=== PATIENT | female | born 1940 | race Two or more races ===

== ENCOUNTER 2017-10-31 14:08 | Inpatient (IN) | payer MEDICARE, MEDICAID ==
[~2017-10-31] VITALS: Ht 160 cm; Wt 78.7 kg
[2017-10-31] MEDS ORDERED: ISOSORBIDE MONO60 M1 PO (14:35)
[2017-10-31] MEDS ORDERED: LOSARTAN-HCTZ1 EAC1 ORAL (14:35)
[2017-10-31] MEDS ORDERED: Morphine Sulfate 4mg/ml Inj IVP ONE (14:45)
[2017-10-31] MEDS ORDERED: Sodium Chloride 500ML 550 ML IV SCH (14:45)
[2017-10-31 15:00] VITALS: BP 232/90
[2017-10-31] MEDS ORDERED: Nitroglycerin Subl 0.4mg tab SL STA (15:48)
[2017-10-31 15:52] LABS: HEMATOCRIT 37.6 % (37.0-47.0); HEMOGLOBIN 11.8 G/DL (12.0-16.0); MEAN CORPUSCULAR VOLUME 88 FL (80-99); PLATELET COUNT 256 K/UL (150-450); RED BLOOD COUNT 4.28 M/UL (4.20-5.40); RED CELL DISTRIBUTION WIDTH 13.1 % (11.6-14.8); WHITE BLOOD COUNT 10.5 K/UL (4.8-10.8)
--- NOTE | 2017-10-31 15:53 | Emergency Room Report ---
History of Present Illness General Chief Complaint: Dyspnea/Respdistress Source: Patient, Family Member Present Illness HPI The patient presents with 3 weeks of intermittent low abdominal pain and dyspnea when she is recumbent. Both have been worse the last 2 days. Pain in her left abdomen has become severe 8/10. In addition to that she's been waking up with dyspnea when she is laying down at night. She denies any chest pain. She is treated for hypertension. Denies any fevers. There's been a productive cough. This has worsened recently. Pain in abdomen is 8/10, constant, aching/ burning. No NVD, dysuria, joint pain. Feels weak. No melena or hematochezia. No vomiting blood. She denies asthma. She states she has had some problems with her kidneys, but unable to state what. Allergies: Coded Allergies: PENICILLINS (Verified Allergy, Unknown, 10/31/17) Patient History Past Medical History: see triage record Past Surgical History: other - knee surgery Social History: Denies: smoking, alcohol use Social History Narrative Reviewed Nursing Documentation: PMH: Agreed, PSxH: Agreed Nursing Documentation-PMH Hx Hypertension: Yes Review of Systems All Other Systems: negative except mentioned in HPI Physical Exam Vital Signs Date Time Temp Pulse Resp B/P (MAP) Pulse Ox O2 Delivery O2 Flow Rate FiO2 10/31/17 14:28 99.1 112 21 230/93 94 Room Air Sp02 EP Interpretation: reviewed, abnormal - low as reviewed by me General Appearance: alert, GCS 15, mild distress Head: normocephalic Eyes: bilateral eye normal inspection, bilateral eye PERRL ENT: moist mucus membranes Neck: supple Respiratory: accessory muscle use, crackles, rales, rhonchi, wheezing, expiration Cardiovascular #1: no edema, tachycardia Cardiovascular #2: 2+ radial (R) Gastrointestinal: normal inspection, no mass, non-distended, no rebound, guarding, tenderness - LLQ Musculoskeletal: back normal, normal range of motion Neurologic: alert, oriented x3, grossly normal Psychiatric: anxious Skin: warm/dry, cyanosis Medical Decision Making Diagnostic Impression: Primary Impression: Congestive heart failure Qualified Codes: I50.41 - Acute combined systolic (congestive) and diastolic ( congestive) heart failure Additional Impressions: Pneumonia Qualified Codes: J18.1 - Lobar pneumonia, unspecified organism Renal failure Qualified Codes: N17.9 - Acute kidney failure, unspecified ER Course Patient presents with 2 problems: orthopnea with hypoxia and LLQ pain. DDx: CHF , PNA, PE, AMI, bronchitis, bronchospasm, HTN urgency amongst others.. LLQ pain ddx: diverticulitis, UTI, strain, ischemic bowel amongst others. Evaluation with EKG, CXR, CT abdomen and pelvis, labs. Treatment with gentle hydration and addressing HTN. Morphine to treat pain (and possibly CHF). Patient EKG without injury. Chest x-ray shows congestive heart failure and a left-sided pleural effusion. Lasix, nitroglycerin paste, and nitroglycerin SL were ordered. Also fluids were stopped. Renal insufficiency. Troponin normal. Improved but still hypertensive. Hydralazine and labetalol ordered. Fever. Antibiotics begun for PNA. CT performed. Some LLQ tenderness. No guard. Not surgical abdomen. CT results - pna, effusion, chf. No bowel disease. Venous abnormalities in pelvis. Patient improved with improved oxygenation, HR and BP. Admit telemetry Dr. Titus (Dr. Camara onion topper). Laboratory Tests Test 10/31/17 15:10 10/31/17 18:15 10/31/17 21:10 White Blood Count 10.5 K/UL (4.8-10.8) Red Blood Count 4.28 M/UL (4.20-5.40) Hemoglobin 11.8 G/DL (12.0-16.0) L Hematocrit 37.6 % (37.0-47.0) Mean Corpuscular Volume 88 FL (80-99) Mean Corpuscular Hemoglobin 27.7 PG (27.0-31.0) Mean Corpuscular Hemoglobin Concent 31.5 G/DL (32.0-36.0) L Red Cell Distribution Width 13.1 % (11.6-14.8) Platelet Count 256 K/UL (150-450) Mean Platelet Volume 6.7 FL (6.5-10.1) Neutrophils (%) (Auto) 90.6 % (45.0-75.0) H Lymphocytes (%) (Auto) 2.2 % (20.0-45.0) L Monocytes (%) (Auto) 6.4 % (1.0-10.0) Eosinophils (%) (Auto) 0.0 % (0.0-3.0) Basophils (%) (Auto) 0.7 % (0.0-2.0) Prothrombin Time 9.3 SEC (9.30-11.50) Prothrombin Time INR 0.9 (0.9-1.1) PTT 29 SEC (23-33) Sodium Level 139 MMOL/L (136-145) Potassium Level 3.5 MMOL/L (3.5-5.1) Chloride Level 105 MMOL/L (98-107) Carbon Dioxide Level 22 MMOL/L (21-32) Anion Gap 12 mmol/L (5-15) Blood Urea Nitrogen 89 mg/dL (7-18) H Creatinine 3.6 MG/DL (0.55-1.30) H Estimate Glomerular Filtration Rate mL/min (>60) Glucose Level 137 MG/DL (74-106) H Calcium Level 7.8 MG/DL (8.5-10.1) L Total Bilirubin 0.5 MG/DL (0.2-1.0) Aspartate Amino Transferase (AST) 38 U/L (15-37) H Alanine Aminotransferase (ALT) 45 U/L (12-78) Alkaline Phosphatase 73 U/L (46-116) Troponin I 0.029 ng/mL (0.000-0.056) 0.063 ng/mL (0.000-0.056) Pro-B-Type Natriuretic Peptide 9800 pg/mL (0-125) H Total Protein 7.3 G/DL (6.4-8.2) Albumin 3.4 G/DL (3.4-5.0) Globulin 3.9 g/dL Albumin/Globulin Ratio 0.9 (1.0-2.7) L Lipase 333 U/L (73-393) Urine Color Pale yellow Urine Appearance Clear Urine pH 5 (4.5-8.0) Urine Specific [place] 1.010 (1.005-1.035) Urine Protein Negative (NEGATIVE) Urine Glucose (UA) Negative (NEGATIVE) Urine Ketones Negative (NEGATIVE) Urine Occult Blood Negative (NEGATIVE) Urine Nitrite Negative (NEGATIVE) Urine Bilirubin Negative (NEGATIVE) Urine Urobilinogen Normal MG/DL (0.0-1.0) Urine Leukocyte Esterase Negative (NEGATIVE) Urine Random Sodium 68 MEQ/L (20-110) Lactic Acid Level 0.80 mmol/L (0.66-2.22) EKG Diagnostic Results Rate: tachycardiac ST Segments: no acute changes Rhythm Strip Diag. Results EP Interpretation: yes Rhythm: no PVC's, no ectopy, other - ST Chest X-Ray Diagnostic Results Chest X-Ray Diagnostic Results : Chest X-Ray Ordered: Yes # of Views/Limited/Complete: 1 View Indication: Shortness of Breath EP Interpretation: Yes Interpretation: no pneumothorax, other - chf and L effusion Impression: Other Electronically Signed by: Electronically signed by Wong Louis MD Last Vital Signs Date Time Temp Pulse Resp B/P (MAP) Pulse Ox O2 Delivery O2 Flow Rate FiO2 10/31/17 22:18 149/62 10/31/17 20:00 99.7 98 24 96 Room Air 10/31/17 19:11 2.0 Status: improved Disposition: ADMITTED INPATIENT Condition: Serious Wong Louis M.D. Oct 31, 2017 15:53
[2017-10-31] MEDS ORDERED: Albuterol ud Inhalation HHN ONE (16:00)
[2017-10-31] MEDS ORDERED: Nitroglycerin 2% oint pkt TOPIC ONE (16:00)
[2017-10-31 16:01] LABS: LYMPHOCYTES % (AUTO) 2.2 % (20.0-45.0); MONOCYTES % (AUTO) 6.4 % (1.0-10.0); NEUTROPHILS % (AUTO) 90.6 % (45.0-75.0)
[2017-10-31 16:02] LABS: BASOPHILS % (AUTO) 0.7 % (0.0-2.0)
[2017-10-31 16:05] LABS: INR 0.9 (0.9-1.1)
[2017-10-31 16:17] LABS: ANION GAP 12 mmol/L (5-15); BLOOD UREA NITROGEN 89 mg/dL (7-18); CALCIUM 7.8 MG/DL (8.5-10.1); CARBON DIOXIDE 22 MMOL/L (21-32); CHLORIDE 105 MMOL/L (98-107); CREATININE 3.6 MG/DL (0.55-1.30); POTASSIUM 3.5 MMOL/L (3.5-5.1); SODIUM 139 MMOL/L (136-145)
[2017-10-31 16:28] LABS: ALANINE AMINOTRANSFERASE 45 U/L (12-78); ALBUMIN 3.4 G/DL (3.4-5.0); ALBUMIN/GLOBULIN RATIO 0.9 (1.0-2.7); ALKALINE PHOSPHATASE 73 U/L (46-116); ASPARTATE AMINO TRANSFERASE 38 U/L (15-37); BILIRUBIN,TOTAL 0.5 MG/DL (0.2-1.0)
[2017-10-31 17:00] VITALS: BP 211/83
[2017-10-31] MEDS ORDERED: Labetalol 5mg/ml 20ml vial IV STA (17:44)
[2017-10-31] MEDS ORDERED: Albuterol/Ipratropium 3ml neb HHN PRN (17:45)
[2017-10-31] MEDS ORDERED: Morphine Sulfate 4mg/ml Inj IVP PRN (17:45)
[2017-10-31] MEDS ORDERED: Miralax 17gm pkt ORAL PRN (17:45)
[2017-10-31] MEDS ORDERED: Morphine Sulfate 2mg/ml Inj IVP PRN (17:45)
--- NOTE | 2017-10-31 17:45 | History and Physical ---
History of Present Illness General Date patient seen: Oct 31, 2017 Time patient seen: 17:45 Reason for Hospitalization: Dyspnea/Respdistress Present Illness HPI 77y/o female with pmh of HTN who presents with SOB and abd pain. Pt w/ worsening SOB for the past week. Has [place] w/ minimal activities. Also with orthopnea, PND, BLE swelling. Has a cough productive of white mucus. Had subjective fevers, no chills. Did not get flu shot this year. Denies chest pain. C/o abd pain that starts at LLQ and radiates up, described as burning sensation, intermittent, not associated w/ eating, worse w/ sitting up. Some nausea, no emesis. Tolerating PO intake. Denies d/c, dysuria, melena, BRBPR. Denies recent travel. Denies smoking. Lives at home w/ daughter and grandchildren. In ED, pt noted to be hypertensive w/ SBP 200s. She was also noted to be in fluid overload and with MOLLY. She was given nebs, lasix IV, nitro paste, cefepime. Allergies: Coded Allergies: PENICILLINS (Verified Allergy, Unknown, 10/31/17) Medication History Scheduled Isosorbide Mononitrate (Isosorbide Mononitrate Er), 60 MG PO DAILY, (Reported) Losartan/Hydrochlorothiazide (Losartan-Hctz 100-25 Mg Tab), 1 TAB ORAL DAILY, ( Reported) Patient History History Provided By: Patient, Family Member, Medical Record, EMS Healthcare decision maker N Resuscitation status Advanced Directive on File Past Medical/Surgical History Past Medical/Surgical History: (1) HTN (hypertension) Family History Family History: Patient reports no known family medical history. Social History Social History: (1) lives at home w/ family Review of Systems Constitutional: Reports: fever, weakness Eye: Reports: no symptoms ENT: Reports: no symptoms Respiratory: Reports: cough, orthopnea, shortness of breath, [place], sputum Cardiovascular: Reports: no symptoms Gastrointestinal: Reports: abdominal pain, nausea Genitourinary: Reports: no symptoms Musculoskeletal: Reports: no symptoms Skin: Reports: no symptoms Psychiatric: Reports: no symptoms Neurological: Reports: no symptoms Endocrine: Reports: no symptoms Hematologic/Lymphatic: Reports: no symptoms Physical Exam Physical Exam Narrative General: alert, cooperative, no distress, appears stated age Head: normocephalic, without obvious abnormality, atraumatic Eyes: conjunctivae/corneas clear. PERRL, EOM's intact Throat: lips, mucosa, and tongue normal. MMM Neck: supple, symmetrical, trachea midline, and +JVD Lungs: +crackles b/l Heart: regular rate and rhythm, S1, S2 normal, no murmur, click, rub or gallop Abdomen: soft, +TTP of lower abd w/o rebound/guarding, non-distended, bowel sounds normal Extremities: extremities normal, atraumatic, no cyanosis, 1-2+ pitting edema to below the knees Pulses: 2+ and symmetric Skin: skin color, texture, turgor normal; no rashes or lesions Neurologic: grossly normal, no focal deficits Last 24 Hour Vital Signs Date Time Temp Pulse Resp B/P (MAP) Pulse Ox O2 Delivery O2 Flow Rate FiO2 10/31/17 17:00 104 21 211/83 95 Room Air 10/31/17 16:20 99.1 10/31/17 16:19 222/82 10/31/17 16:18 222/82 10/31/17 16:07 105 22 100 Room Air 10/31/17 16:01 102 19 Room Air 10/31/17 15:58 104 25 98 Room Air 10/31/17 15:00 105 17 232/90 99 Room Air 10/31/17 14:38 105 17 Room Air 10/31/17 14:28 99.1 112 21 230/93 94 Room Air Laboratory Tests Test 10/31/17 15:10 White Blood Count 10.5 K/UL (4.8-10.8) Red Blood Count 4.28 M/UL (4.20-5.40) Hemoglobin 11.8 G/DL (12.0-16.0) L Hematocrit 37.6 % (37.0-47.0) Mean Corpuscular Volume 88 FL (80-99) Mean Corpuscular Hemoglobin 27.7 PG (27.0-31.0) Mean Corpuscular Hemoglobin Concent 31.5 G/DL (32.0-36.0) L Red Cell Distribution Width 13.1 % (11.6-14.8) Platelet Count 256 K/UL (150-450) Mean Platelet Volume 6.7 FL (6.5-10.1) Neutrophils (%) (Auto) 90.6 % (45.0-75.0) H Lymphocytes (%) (Auto) 2.2 % (20.0-45.0) L Monocytes (%) (Auto) 6.4 % (1.0-10.0) Eosinophils (%) (Auto) 0.0 % (0.0-3.0) Basophils (%) (Auto) 0.7 % (0.0-2.0) Prothrombin Time 9.3 SEC (9.30-11.50) Prothromb Time International Ratio 0.9 (0.9-1.1) Activated Partial Thromboplast Time 29 SEC (23-33) Sodium Level 139 MMOL/L (136-145) Potassium Level 3.5 MMOL/L (3.5-5.1) Chloride Level 105 MMOL/L (98-107) Carbon Dioxide Level 22 MMOL/L (21-32) Anion Gap 12 mmol/L (5-15) Blood Urea Nitrogen 89 mg/dL (7-18) H Creatinine 3.6 MG/DL (0.55-1.30) H Estimat Glomerular Filtration Rate mL/min (>60) Glucose Level 137 MG/DL (74-106) H Calcium Level 7.8 MG/DL (8.5-10.1) L Total Bilirubin 0.5 MG/DL (0.2-1.0) Aspartate Amino Transf (AST/SGOT) 38 U/L (15-37) H Alanine Aminotransferase (ALT/SGPT) 45 U/L (12-78) Alkaline Phosphatase 73 U/L (46-116) Troponin I 0.029 ng/mL (0.000-0.056) Pro-B-Type Natriuretic Peptide 9800 pg/mL (0-125) H Total Protein 7.3 G/DL (6.4-8.2) Albumin 3.4 G/DL (3.4-5.0) Globulin 3.9 g/dL Albumin/Globulin Ratio 0.9 (1.0-2.7) L Lipase 333 U/L (73-393) Height (Feet): 5 Height (Inches): 3.00 Weight (Pounds): 180 Medications Current Medications Medications (Trade) Dose Ordered Sig/Luis Carlos Route PRN Reason Start Time Stop Time Status Last Admin Dose Admin Acetaminophen (Tylenol) 650 mg Q4H PRN ORAL Mild Pain (Pain Scale 1-3) 10/31/17 17:45 11/30/17 17:44 UNV Acetaminophen (Tylenol) 650 mg Q4H PRN ORAL fever 10/31/17 17:45 11/30/17 17:44 UNV Albuterol/ Ipratropium (Albuterol/ Ipratropium) 3 ml Q2H PRN HHN Shortness of Breath 10/31/17 17:45 11/05/17 17:44 UNV Amlodipine Besylate (Norvasc) 10 mg QPM ORAL 11/01/17 16:30 12/01/17 16:29 UNV Dextrose (Dextrose 50%) STAT PRN IV Hypoglycemia 10/31/17 17:45 11/30/17 17:44 UNV Docusate Sodium (Colace) 100 mg EVERY 12 HOURS ORAL 10/31/17 21:00 11/30/17 20:59 UNV Heparin Sodium (Porcine) (Heparin 5000 units/ml) 5,000 units EVERY 12 HOURS SUBQ 10/31/17 21:00 11/30/17 20:59 UNV Isosorbide Mononitrate (Imdur) 60 mg QD ORAL 11/01/17 08:00 12/01/17 07:59 UNV Morphine Sulfate (Morphine Sulfate) 2 mg Q4H PRN IVP Moderate Pain (Pain Scale 4-6) 10/31/17 17:45 11/07/17 17:44 UNV Morphine Sulfate (Morphine Sulfate) 4 mg Q4H PRN IVP Severe Pain (Pain Scale 7-10) 10/31/17 17:45 11/07/17 17:44 UNV Ondansetron HCl (Zofran) 4 mg Q6H PRN IVP Nausea & Vomiting 10/31/17 17:45 11/30/17 17:44 UNV Polyethylene Glycol (Miralax) 17 gm HSPRN PRN ORAL Constipation 10/31/17 17:45 11/30/17 17:44 UNV Assessment/Plan Problem List: (1) Acute on chronic diastolic (congestive) heart failure ICD Codes: I50.33 - Acute on chronic diastolic (congestive) heart failure SNOMED: 14882152, 174072776 (2) Hypertensive urgency ICD Codes: I16.0 - Hypertensive urgency SNOMED: 011165124 (3) Hypertensive heart disease ICD Codes: I11.9 - Hypertensive heart disease without heart failure SNOMED: 35973056 (4) MOLLY on CKD (5) Cardiorenal syndrome ICD Codes: I13.10 - Hypertensive heart and chronic kidney disease without heart failure, with stage 1 through stage 4 chronic kidney disease, or unspecified chronic kidney disease SNOMED: 414042608 (6) NSTEMI (non-ST elevated myocardial infarction) ICD Codes: I21.4 - Non-ST elevation (NSTEMI) myocardial infarction SNOMED: 982976981 (7) Abdominal pain ICD Codes: R10.9 - Unspecified abdominal pain SNOMED: 03209503 Status: stable Assessment/Plan Admit to tele Trend trop/EKG Check TTE Cardiology consulted BP control: cont home imdur 60mg qAM, start amlodipine 10mg daily, hydralazine 25mg TID Diurese w/ lasix 40mg IV BID, I/O goal -1 to 2L Strict I/O's, daily weights Cont box for strict I/O's Monitor lytes and replete F/u BLE venous duplex Renal consulted Check renal U/S, urine lytes F/u CT a/p Pain control, bowel regimen Supportive care DVT Prophylaxis: SCD, HSQ Code Status: Full Hospital Classification Declaration: Based on this initial evaluation, and depending on the patient's clinical course, I anticipate that this patient will require hospitalization for 2-3 days for hypertensive urgency, CHF, MOLLY and close respiratory/hemodynamic monitoring. Disposition: Once the patient is stable to leave the hospital, I anticipate the patient will likely be discharged to the following environment: home with HH vs SNF I spen 72 minutes on this patient's case, and 38 minutes were dedicated to counseling and/or care coordination. Discussed with patient/family, nursing staff, SW/CM, cardiology regarding clinical status, treatment course, and disposition planning. Time of note may not reflect time of encounter. Jax Hines M.D. Oct 31, 2017 17:45
[2017-10-31] MEDS ORDERED: Cefepime 1gm vial ONE (18:00)
[2017-10-31] MEDS ORDERED: Cefepime HCl 1 GM in D5W 55 ML IVPB ONE (18:00)
[2017-10-31 18:30] VITALS: BP 247/103
[2017-10-31 19:03] LABS: APPEARANCE,URINE CLEAR; BILIRUBIN, URINE NEGATIVE (NEGATIVE); COLOR,URINE PALE YELLOW; GLUCOSE, URINE (UA) NEGATIVE (NEGATIVE); KETONES,URINE NEGATIVE (NEGATIVE); LEUKOCYTE ESTERASE ,URINE NEGATIVE (NEGATIVE); NITRITE,URINE NEGATIVE (NEGATIVE); PH,URINE 5 (4.5-8.0); PROTEIN,URINE NEGATIVE (NEGATIVE); UROBILINOGEN,URINE NORMAL MG/DL (0.0-1.0)
[2017-10-31 19:11] VITALS: BP 153/82
[2017-10-31 20:00] VITALS: BP 145/57
--- NOTE | 2017-10-31 20:05 | Cardiac Electrophysiology PN ---
Subjective Subjective CHF, ACC HTN, Pleural effusion. Renal failure Dictaed [id number] Objective Last 24 Hour Vital Signs Date Time Temp Pulse Resp B/P (MAP) Pulse Ox O2 Delivery O2 Flow Rate FiO2 10/31/17 19:11 100.0 102 32 153/82 93 Nasal Cannula 2.0 10/31/17 18:40 102.2 99 32 247/103 93 Room Air 10/31/17 18:30 102.2 99 32 247/103 93 Room Air 10/31/17 18:03 100 256/72 10/31/17 18:02 100 256/86 10/31/17 18:02 256/72 10/31/17 17:00 104 21 211/83 95 Room Air 10/31/17 16:20 99.1 10/31/17 16:19 222/82 10/31/17 16:18 222/82 10/31/17 16:07 105 22 100 Room Air 10/31/17 16:01 102 19 Room Air 10/31/17 15:58 104 25 98 Room Air 10/31/17 15:00 105 17 232/90 99 Room Air 10/31/17 14:38 105 17 Room Air 10/31/17 14:28 99.1 112 21 230/93 94 Room Air Laboratory Tests Test 10/31/17 15:10 10/31/17 18:15 White Blood Count 10.5 K/UL (4.8-10.8) Red Blood Count 4.28 M/UL (4.20-5.40) Hemoglobin 11.8 G/DL (12.0-16.0) L Hematocrit 37.6 % (37.0-47.0) Mean Corpuscular Volume 88 FL (80-99) Mean Corpuscular Hemoglobin 27.7 PG (27.0-31.0) Mean Corpuscular Hemoglobin Concent 31.5 G/DL (32.0-36.0) L Red Cell Distribution Width 13.1 % (11.6-14.8) Platelet Count 256 K/UL (150-450) Mean Platelet Volume 6.7 FL (6.5-10.1) Neutrophils (%) (Auto) 90.6 % (45.0-75.0) H Lymphocytes (%) (Auto) 2.2 % (20.0-45.0) L Monocytes (%) (Auto) 6.4 % (1.0-10.0) Eosinophils (%) (Auto) 0.0 % (0.0-3.0) Basophils (%) (Auto) 0.7 % (0.0-2.0) Prothrombin Time 9.3 SEC (9.30-11.50) Prothromb Time International Ratio 0.9 (0.9-1.1) Activated Partial Thromboplast Time 29 SEC (23-33) Sodium Level 139 MMOL/L (136-145) Potassium Level 3.5 MMOL/L (3.5-5.1) Chloride Level 105 MMOL/L (98-107) Carbon Dioxide Level 22 MMOL/L (21-32) Anion Gap 12 mmol/L (5-15) Blood Urea Nitrogen 89 mg/dL (7-18) H Creatinine 3.6 MG/DL (0.55-1.30) H Estimat Glomerular Filtration Rate mL/min (>60) Glucose Level 137 MG/DL (74-106) H Calcium Level 7.8 MG/DL (8.5-10.1) L Total Bilirubin 0.5 MG/DL (0.2-1.0) Aspartate Amino Transf (AST/SGOT) 38 U/L (15-37) H Alanine Aminotransferase (ALT/SGPT) 45 U/L (12-78) Alkaline Phosphatase 73 U/L (46-116) Troponin I 0.029 ng/mL (0.000-0.056) Pro-B-Type Natriuretic Peptide 9800 pg/mL (0-125) H Total Protein 7.3 G/DL (6.4-8.2) Albumin 3.4 G/DL (3.4-5.0) Globulin 3.9 g/dL Albumin/Globulin Ratio 0.9 (1.0-2.7) L Lipase 333 U/L (73-393) Urine Color Pale yellow Urine Appearance Clear Urine pH 5 (4.5-8.0) Urine Specific [place] 1.010 (1.005-1.035) Urine Protein Negative (NEGATIVE) Urine Glucose (UA) Negative (NEGATIVE) Urine Ketones Negative (NEGATIVE) Urine Occult Blood Negative (NEGATIVE) Urine Nitrite Negative (NEGATIVE) Urine Bilirubin Negative (NEGATIVE) Urine Urobilinogen Normal MG/DL (0.0-1.0) Urine Leukocyte Esterase Negative (NEGATIVE) Urine Random Sodium 68 MEQ/L (20-110) Lactic Acid Level 0.80 mmol/L (0.66-2.22) ALEJANDRA GUTIERREZ Oct 31, 2017 20:05
[2017-10-31] MEDS: Heparin 5000 units/ml inj SUBQ SCH (20:45)
[2017-10-31] MEDS: Docusate 100mg cap ORAL SCH (20:45)
[2017-10-31] MEDS: HydrALAZINE 50mg tab ORAL SCH (22:18)
[2017-10-31 23:49] VITALS: BP 147/79
--- NOTE | 2017-11-01 00:30 | Consultation ---
DATE OF CONSULTATION: 10/31/2017 CARDIOLOGY CONSULTATION CONSULTING PHYSICIAN: Nav Ospina M.D. REFERRING PHYSICIAN: Lilly Titus M.D. REASON FOR CONSULTATION: Congestive heart failure, shortness of breath, and accelerated hypertension. HISTORY OF PRESENT ILLNESS: The patient is a very pleasant 77-year-old lady, who was brought into the emergency room for increasing shortness of breath and weakness. The patient was evaluated in the emergency room and was admitted for further evaluation. The patient is also complaining of left-sided abdominal pain that has become severe. She denies any chest pain. PAST MEDICAL HISTORY: Include hypertension. ALLERGIES: She is allergic to penicillin. FAMILY HISTORY: Noncontributory. SOCIAL HISTORY: She lives at home. Does not smoke or drink alcohol. REVIEW OF SYSTEMS: Review of systems was negative other than what was mentioned in the history of present illness. PHYSICAL EXAMINATION: VITAL SIGNS: Blood pressure in the emergency room was 230/93, pulse is 112, respirations 21. HEAD AND NECK: Shows no JVD. LUNGS: Decreased breath sounds. CARDIOVASCULAR: Shows regular S1 and S2 with no gallop or murmur. ABDOMEN: Soft. EXTREMITIES: A 1+ pitting edema. LABORATORY AND DIAGNOSTIC DATA: The chest x-ray showed congestive heart failure with left-sided pleural effusion. Her EKG showed sinus tachycardia, otherwise normal electrocardiogram. Her labs show white count of 10.5, hemoglobin 11.8, hematocrit 37.6, and platelet count 256,000. Sodium 139, potassium 3.5, BUN of 89, creatinine 3.6, and glucose of 137, troponin is negative. BNP is 9800. ASSESSMENT AND PLAN: 1. Shortness of breath due to volume overload due to renal failure and congestive heart failure. The BNP is more than 9000, almost 10,000. Troponin is 0.029. We will get an echocardiogram with repeat cardiac enzymes. The patient likely would need high dose of Lasix especially given the patient's renal failure. 2. Accelerated hypertension. Avoid GILMA inhibitor and angiotensin receptor blockers. I will start the patient on hydralazine and Norvasc. I will add p.r.n. clonidine to her medical regimen as well. Thank you very much, Dr. Titus, for allowing me to participate in the care of this patient. Please do not hesitate to contact me for any questions regarding my evaluation. Nav Ospina M.D. DR: YOUNG JOB#: [id number] CC:
[2017-11-01 04:30] VITALS: BP 188/86
[2017-11-01] MEDS: Imdur 30mg tab ORAL SCH (05:53)
[2017-11-01] MEDS: HydrALAZINE 50mg tab ORAL SCH ×3 (05:53→22:21)
[2017-11-01 08:00] VITALS: BP 184/91
[2017-11-01] MEDS: Heparin 5000 units/ml inj SUBQ SCH (08:18)
[2017-11-01] MEDS: Docusate 100mg cap ORAL SCH ×3 (08:18→17:36)
[2017-11-01] MEDS: Aspirin EC 81mg tab ORAL SCH (08:18)
[2017-11-01 09:07] LABS: HEMATOCRIT 33.9 % (37.0-47.0); MEAN CORPUSCULAR VOLUME 90 FL (80-99); PLATELET COUNT 220 K/UL (150-450); RED BLOOD COUNT 3.76 M/UL (4.20-5.40); RED CELL DISTRIBUTION WIDTH 13.3 % (11.6-14.8); WHITE BLOOD COUNT 7.8 K/UL (4.8-10.8)
[2017-11-01 09:31] LABS: ALANINE AMINOTRANSFERASE 40 U/L (12-78); ALBUMIN 2.9 G/DL (3.4-5.0); ALBUMIN/GLOBULIN RATIO 0.8 (1.0-2.7); ALKALINE PHOSPHATASE 64 U/L (46-116); ANION GAP 13 mmol/L (5-15); ASPARTATE AMINO TRANSFERASE 41 U/L (15-37); BILIRUBIN,TOTAL 0.5 MG/DL (0.2-1.0); BLOOD UREA NITROGEN 87 mg/dL (7-18); CALCIUM 7.3 MG/DL (8.5-10.1); CARBON DIOXIDE 22 MMOL/L (21-32); CHLORIDE 104 MMOL/L (98-107); CHOLESTEROL 154 MG/DL (< 200); CREATININE 3.9 MG/DL (0.55-1.30); HDL CHOLESTEROL 82 MG/DL (40-60); POTASSIUM 3.4 MMOL/L (3.5-5.1); SODIUM 139 MMOL/L (136-145); TRIGLYCERIDES 73 MG/DL (30-150)
--- NOTE | 2017-11-01 09:46 | Consultation ---
Consult Note Consult Note asked to eval for renal failure- The patient presents with 3 weeks of intermittent low abdominal pain and dyspnea when she is recumbent. Both have been worse the last 2 days. Pain in her left abdomen has become severe 8/10. In addition to that she's been waking up with dyspnea when she is laying down at night. She denies any chest pain. She is treated for hypertension. Denies any fevers. There's been a productive cough. This has worsened recently. Pain in abdomen is 8/10, constant, aching/ burning. No NVD, dysuria, joint pain. Feels weak. No melena or hematochezia. No vomiting blood. She denies asthma. She states she has had some problems with her kidneys, but unable to state what. Allergies: PENICILLINS (Verified Allergy, Unknown, 10/31/17) Hx Hypertension: Yes examined- data reviewed discussed with mounter saxophones/Plan plan: Renal failure , Acute + Underlying chronic Hypertensive heart and kidney disease Hypertensive urgency CHF Plan: Adjust BP meds- Avoid Nephrotoxics Monitor I&O 2D Echo Diurese Kidney OSVALDO monitor renal parameters Urine studies VALENCIA MERCER Nov 01, 2017 09:46
[2017-11-01 10:58] LABS: CREATINE KINASE 134 U/L (26-308); GAMMA GLUTAMYL TRANSPEPTIDASE 16 U/L (5-85); PHOSPHORUS 5.3 MG/DL (2.5-4.9)
[2017-11-01 12:00] VITALS: BP 128/69
[2017-11-01] MEDS ORDERED: guaiFENesin 100mg/5ml Liq ud ORAL PRN (12:15)
[2017-11-01] MEDS: Azithromycin 250mg tab ORAL SCH (13:03)
[2017-11-01] MEDS: guaiFENesin ER 600mg tab ORAL SCH ×2 (13:12→17:36)
[2017-11-01] MEDS: Albuterol/Ipratropium 3ml neb HHN SCH (13:19)
[2017-11-01] MEDS: cefTRIAXone 1 GM in D5W 55 ML IVPB SCH (14:51)
--- NOTE | 2017-11-01 15:40 | Cardiac Electrophysiology PN ---
Assessment/Plan Assessment/Plan 1. Shortness of breath due to volume overload due to renal failure and congestive heart failure. The BNP is almost 10,000. Troponin is 0.029. Echocardiogram showed EF 55% 2. Accelerated hypertension. Better on Coreg 3.125 bid,hydralazine 50 bid, Imdur, Lasix and Norvasc and p.r.n. clonidine Subjective Subjective Feeling better with diuresis and BP is better. Objective Last 24 Hour Vital Signs Date Time Temp Pulse Resp B/P (MAP) Pulse Ox O2 Delivery O2 Flow Rate FiO2 11/01/17 14:55 128/69 11/01/17 13:29 90 22 96 Nasal Cannula 2.0 28 11/01/17 13:19 86 24 94 Nasal Cannula 2.0 28 11/01/17 12:02 101 20 Nasal Cannula 4.0 36 11/01/17 12:01 94 Nasal Cannula 4.0 36 11/01/17 12:00 97.3 85 19 128/69 85 Nasal Cannula 11/01/17 12:00 97 11/01/17 10:58 99 163/80 11/01/17 10:58 99 163/80 11/01/17 08:42 Nasal Cannula 4.0 36 11/01/17 08:00 97.3 108 18 184/91 94 Nasal Cannula 11/01/17 08:00 108 11/01/17 05:53 165/96 11/01/17 05:53 165/96 11/01/17 04:30 100.3 102 22 188/86 92 Nasal Cannula 11/01/17 04:27 185/96 11/01/17 03:44 107 11/01/17 02:31 102 24 92 Nasal Cannula 2.0 28 11/01/17 02:24 102 24 92 Nasal Cannula 2.0 28 11/01/17 02:23 102 24 Nasal Cannula 2.0 28 10/31/17 23:50 89 10/31/17 23:49 97.9 98 24 147/79 95 Nasal Cannula 2.0 10/31/17 22:18 149/62 10/31/17 20:00 99.7 98 24 145/57 96 Room Air 10/31/17 19:44 99 10/31/17 19:11 100.0 102 32 153/82 93 Nasal Cannula 2.0 10/31/17 18:40 102.2 99 32 247/103 93 Room Air 10/31/17 18:30 102.2 99 32 247/103 93 Room Air 10/31/17 18:03 100 256/72 10/31/17 18:02 100 256/86 10/31/17 18:02 256/72 10/31/17 17:00 104 21 211/83 95 Room Air 10/31/17 16:20 99.1 10/31/17 16:19 222/82 10/31/17 16:18 222/82 10/31/17 16:07 105 22 100 Room Air 10/31/17 16:01 102 19 Room Air 10/31/17 15:58 104 25 98 Room Air Intake and Output 10/31/17 11/01/17 19:00 07:00 Output Total 500 ml 825 ml Balance -500 ml -825 ml Output Urine Total 500 ml 825 ml Laboratory Tests Test 10/31/17 18:15 10/31/17 21:10 11/01/17 07:40 11/01/17 08:00 Urine Color Pale yellow Urine Appearance Clear Urine pH 5 (4.5-8.0) Urine Specific [place] 1.010 (1.005-1.035) Urine Protein Negative (NEGATIVE) Urine Glucose (UA) Negative (NEGATIVE) Urine Ketones Negative (NEGATIVE) Urine Occult Blood Negative (NEGATIVE) Urine Nitrite Negative (NEGATIVE) Urine Bilirubin Negative (NEGATIVE) Urine Urobilinogen Normal MG/DL (0.0-1.0) Urine Leukocyte Esterase Negative (NEGATIVE) Urine Random Sodium 68 MEQ/L (20-110) Lactic Acid Level 0.80 mmol/L (0.66-2.22) Troponin I 0.063 ng/mL (0.000-0.056) 0.042 ng/mL (0.000-0.056) White Blood Count 7.8 K/UL (4.8-10.8) Red Blood Count 3.76 M/UL (4.20-5.40) L Hemoglobin 11.0 G/DL (12.0-16.0) L Hematocrit 33.9 % (37.0-47.0) L Mean Corpuscular Volume 90 FL (80-99) Mean Corpuscular Hemoglobin 29.2 PG (27.0-31.0) Mean Corpuscular Hemoglobin Concent 32.3 G/DL (32.0-36.0) Red Cell Distribution Width 13.3 % (11.6-14.8) Platelet Count 220 K/UL (150-450) Mean Platelet Volume 7.5 FL (6.5-10.1) Neutrophils (%) (Auto) % (45.0-75.0) Lymphocytes (%) (Auto) % (20.0-45.0) Monocytes (%) (Auto) % (1.0-10.0) Eosinophils (%) (Auto) % (0.0-3.0) Basophils (%) (Auto) % (0.0-2.0) Differential Total Cells Counted 100 Neutrophils % (Manual) 92 % (45-75) H Lymphocytes % (Manual) 2 % (20-45) L Monocytes % (Manual) 6 % (1-10) Eosinophils % (Manual) 0 % (0-3) Basophils % (Manual) 0 % (0-2) Band Neutrophils 0 % (0-8) Platelet Estimate Adequate Platelet Morphology Normal Hypochromasia 1+ Sodium Level 139 MMOL/L (136-145) Potassium Level 3.4 MMOL/L (3.5-5.1) L Chloride Level 104 MMOL/L (98-107) Carbon Dioxide Level 22 MMOL/L (21-32) Anion Gap 13 mmol/L (5-15) Blood Urea Nitrogen 87 mg/dL (7-18) H Creatinine 3.9 MG/DL (0.55-1.30) H Estimat Glomerular Filtration Rate mL/min (>60) Glucose Level 128 MG/DL (74-106) H Hemoglobin A1c 5.8 % (4.3-6.0) Uric Acid 11.0 MG/DL (2.6-7.2) H Calcium Level 7.3 MG/DL (8.5-10.1) L Phosphorus Level 5.3 MG/DL (2.5-4.9) H Magnesium Level 2.2 MG/DL (1.8-2.4) Total Bilirubin 0.5 MG/DL (0.2-1.0) Gamma Glutamyl Transpeptidase 16 U/L (5-85) Aspartate Amino Transf (AST/SGOT) 41 U/L (15-37) H Alanine Aminotransferase (ALT/SGPT) 40 U/L (12-78) Alkaline Phosphatase 64 U/L (46-116) Total Creatine Kinase 134 U/L (26-308) Total Protein 6.7 G/DL (6.4-8.2) Albumin 2.9 G/DL (3.4-5.0) L Globulin 3.8 g/dL Albumin/Globulin Ratio 0.8 (1.0-2.7) L Triglycerides Level 73 MG/DL (30-150) Cholesterol Level 154 MG/DL (< 200) LDL Cholesterol 67 mg/dL (<100) HDL Cholesterol 82 MG/DL (40-60) H Cholesterol/HDL Ratio 1.9 (3.3-4.4) L Thyroid Stimulating Hormone (TSH) 0.505 uiU/mL (0.358-3.740) Free Thyroxine 1.31 NG/DL (0.76-1.46) Urine Creatinine 75.0 MG/DL (30.0-125.0) Objective HEAD AND NECK: Shows no JVD. LUNGS: Decreased breath sounds. CARDIOVASCULAR: Shows regular S1 and S2 with no gallop or murmur. ABDOMEN: Soft. EXTREMITIES: A 1+ pitting edema. ALEJANDRA GUTIERREZ Nov 01, 2017 15:40
[2017-11-01 16:00] VITALS: BP 159/73
[2017-11-01] MEDS ORDERED: Heparin 25,000u/D5W 500ml 500 ML IV SCH (19:30)
[2017-11-01 20:00] VITALS: BP 142/72
[2017-11-01 20:07] LABS: BASOPHILS % (AUTO) 1.1 % (0.0-2.0); HEMATOCRIT 32.2 % (37.0-47.0); HEMOGLOBIN 9.8 G/DL (12.0-16.0); LYMPHOCYTES % (AUTO) 10.4 % (20.0-45.0); MEAN CORPUSCULAR VOLUME 89 FL (80-99); MONOCYTES % (AUTO) 6.3 % (1.0-10.0); NEUTROPHILS % (AUTO) 82.2 % (45.0-75.0); PLATELET COUNT 200 K/UL (150-450); RED BLOOD COUNT 3.62 M/UL (4.20-5.40); RED CELL DISTRIBUTION WIDTH 13.4 % (11.6-14.8); WHITE BLOOD COUNT 5.9 K/UL (4.8-10.8)
--- NOTE | 2017-11-01 23:26 | General Progress Note ---
Assessment/Plan Problem List: (1) Acute on chronic diastolic (congestive) heart failure ICD Codes: I50.33 - Acute on chronic diastolic (congestive) heart failure SNOMED: 68888413, 081941742 (2) Hypertensive urgency ICD Codes: I16.0 - Hypertensive urgency SNOMED: 054849864 (3) Hypertensive heart disease ICD Codes: I11.9 - Hypertensive heart disease without heart failure SNOMED: 36535215 (4) MOLLY on CKD (5) Cardiorenal syndrome ICD Codes: I13.10 - Hypertensive heart and chronic kidney disease without heart failure, with stage 1 through stage 4 chronic kidney disease, or unspecified chronic kidney disease SNOMED: 759924085 (6) NSTEMI (non-ST elevated myocardial infarction) ICD Codes: I21.4 - Non-ST elevation (NSTEMI) myocardial infarction SNOMED: 032925978 (7) Abdominal pain ICD Codes: R10.9 - Unspecified abdominal pain SNOMED: 91291946 Status: stable Assessment/Plan Trend trop/EKG until peak F/u TTE--EF wnl, diastolic dysfcn, LVH Cardiology consulted, appreciate rec's BP control: cont home imdur 60mg qAM, start amlodipine 10mg daily, hydralazine 25mg TID,c oreg 3.125mg BID Diurese w/ lasix 40mg IV BID, I/O goal -1 to 2L Repeat CXR in AM Empiric ceftriaxone + azithro for possible CAP Check for influenza Strict I/O's, daily weights Cont box for strict I/O's Monitor lytes and replete Monitor SC closely F/u BLE venous duplex Renal consulted Check renal U/S, urine lytes F/u CT a/p Pain control, bowel regimen Supportive care DVT Prophylaxis: SCD, HSQ Code Status: Full Hospital Classification Declaration: Based on this initial evaluation, and depending on the patient's clinical course, I anticipate that this patient will require hospitalization for 2-3 days for hypertensive urgency, CHF, MOLLY and close respiratory/hemodynamic monitoring. Disposition: Once the patient is stable to leave the hospital, I anticipate the patient will likely be discharged to the following environment: home with HH vs SNF Discussed with patient/family, nursing staff, SW/CM, cardiology regarding clinical status, treatment course, and disposition planning. D/w cardiology re BP control Time of note may not reflect time of encounter. Subjective Date patient seen: Nov 01, 2017 Time patient seen: 12:11 ROS Limited/Unobtainable: No Constitutional: Reports: weakness HEENT: Reports: no symptoms Cardiovascular: Reports: no symptoms Respiratory: Reports: cough, orthopnea, shortness of breath, SOB with excertion , sputum Gastrointestinal/Abdominal: Reports: abdominal pain Genitourinary: Reports: no symptoms Neurologic/Psychiatric: Reports: no symptoms Endocrine: Reports: no symptoms Hematologic/Lymphatic: Reports: no symptoms Allergies: Coded Allergies: PENICILLINS (Verified Allergy, Unknown, 10/31/17) Subjective No acute o/n events Diuresing well BP improved Pt cont to c/o SOB, abd pain, some cough. Denies f/c, n/v, d/c, chest pain D/w family at bedside Objective Last 24 Hour Vital Signs Date Time Temp Pulse Resp B/P (MAP) Pulse Ox O2 Delivery O2 Flow Rate FiO2 11/01/17 22:21 103/71 11/01/17 21:54 85 112/72 11/01/17 20:00 97.3 85 25 142/72 95 Nasal Cannula 2.0 11/01/17 18:29 Nasal Cannula 2.0 28 11/01/17 18:29 94 Nasal Cannula 2.0 28 11/01/17 16:52 98.1 11/01/17 16:45 98.1 11/01/17 16:00 84 11/01/17 16:00 98.1 85 19 159/73 85 Nasal Cannula 2.0 11/01/17 15:55 100.8 Nasal Cannula 11/01/17 14:55 128/69 11/01/17 13:29 90 22 96 Nasal Cannula 2.0 28 11/01/17 13:19 86 24 94 Nasal Cannula 2.0 28 11/01/17 12:02 101 20 Nasal Cannula 4.0 36 11/01/17 12:01 94 Nasal Cannula 4.0 36 11/01/17 12:00 97.3 85 19 128/69 85 Nasal Cannula 11/01/17 12:00 97 11/01/17 10:58 99 163/80 11/01/17 10:58 99 163/80 11/01/17 08:42 Nasal Cannula 4.0 36 11/01/17 08:00 97.3 108 18 184/91 94 Nasal Cannula 11/01/17 08:00 108 11/01/17 05:53 165/96 11/01/17 05:53 165/96 11/01/17 04:30 100.3 102 22 188/86 92 Nasal Cannula 11/01/17 04:27 185/96 11/01/17 03:44 107 11/01/17 02:31 102 24 92 Nasal Cannula 2.0 28 11/01/17 02:24 102 24 92 Nasal Cannula 2.0 28 11/01/17 02:23 102 24 Nasal Cannula 2.0 28 10/31/17 23:50 89 10/31/17 23:49 97.9 98 24 147/79 95 Nasal Cannula 2.0 Intake and Output 10/31/17 11/01/17 19:00 07:00 Output Total 500 ml 825 ml Balance -500 ml -825 ml Output Urine Total 500 ml 825 ml Laboratory Tests 11/01/17 07:40: White Blood Count 7.8, Red Blood Count 3.76L, Hemoglobin 11.0L, Hematocrit 33.9L , Mean Corpuscular Volume 90, Mean Corpuscular Hemoglobin 29.2, Mean Corpuscular Hemoglobin Concent 32.3, Red Cell Distribution Width 13.3, Platelet Count 220, Mean Platelet Volume 7.5, Neutrophils (%) (Auto) , Lymphocytes (%) ( Auto) , Monocytes (%) (Auto) , Eosinophils (%) (Auto) , Basophils (%) (Auto) , Differential Total Cells Counted 100, Neutrophils % (Manual) 92H, Lymphocytes % (Manual) 2L, Monocytes % (Manual) 6, Eosinophils % (Manual) 0, Basophils % ( Manual) 0, Band Neutrophils 0, Platelet Estimate Adequate, Platelet Morphology Normal, Hypochromasia 1+, Sodium Level 139, Potassium Level 3.4L, Chloride Level 104, Carbon Dioxide Level 22, Anion Gap 13, Blood Urea Nitrogen 87H, Creatinine 3.9H, Estimat Glomerular Filtration Rate , Glucose Level 128H, Hemoglobin A1c 5.8, Uric Acid 11.0H, Calcium Level 7.3L, Phosphorus Level 5.3H, Magnesium Level 2.2, Total Bilirubin 0.5, Gamma Glutamyl Transpeptidase 16, Aspartate Amino Transf (AST/SGOT) 41H, Alanine Aminotransferase (ALT/SGPT) 40, Alkaline Phosphatase 64, Total Creatine Kinase 134, Troponin I 0.042, Total Protein 6.7, Albumin 2.9L, Globulin 3.8, Albumin/Globulin Ratio 0.8L, Triglycerides Level 73, Cholesterol Level 154, LDL Cholesterol 67, HDL Cholesterol 82H, Cholesterol/HDL Ratio 1.9L, Thyroid Stimulating Hormone (TSH) 0.505, Free Thyroxine 1.31 11/01/17 08:00: Urine Creatinine 75.0 11/01/17 19:55: White Blood Count 5.9, Red Blood Count 3.62L, Hemoglobin 9.8L, Hematocrit 32.2L , Mean Corpuscular Volume 89, Mean Corpuscular Hemoglobin 27.1, Mean Corpuscular Hemoglobin Concent 30.5L, Red Cell Distribution Width 13.4, Platelet Count 200, Mean Platelet Volume 7.0, Neutrophils (%) (Auto) 82.2H, Lymphocytes (%) (Auto) 10.4L, Monocytes (%) (Auto) 6.3, Eosinophils (%) (Auto) 0.0, Basophils (%) (Auto) 1.1, Activated Partial Thromboplast Time 32 Height (Feet): 5 Height (Inches): 3.00 Weight (Pounds): 189 Objective General: alert, cooperative, no distress, appears stated age Head: normocephalic, without obvious abnormality, atraumatic Eyes: conjunctivae/corneas clear. PERRL, EOM's intact Throat: lips, mucosa, and tongue normal. MMM Neck: supple, symmetrical, trachea midline, and +JVD Lungs: +crackles b/l Heart: regular rate and rhythm, S1, S2 normal, no murmur, click, rub or gallop Abdomen: soft, +mild TTP of b/l lower quadrants, non-distended, bowel sounds normal Extremities: extremities normal, atraumatic, no cyanosis or edema Pulses: 2+ and symmetric Skin: skin color, texture, turgor normal; no rashes or lesions Neurologic: grossly normal, no focal deficits Jax Hines M.D. Nov 01, 2017 23:26
[2017-11-02] VITALS: BP 154/84
[2017-11-02] MEDS: Albuterol/Ipratropium 3ml neb HHN SCH ×5 (02:02→19:37)
[2017-11-02 02:49] LABS: EOSINOPHILS % (AUTO) 0.1 % (0.0-3.0); HEMATOCRIT 32.8 % (37.0-47.0); HEMOGLOBIN 10.6 G/DL (12.0-16.0); LYMPHOCYTES % (AUTO) 8.6 % (20.0-45.0); MEAN CORPUSCULAR VOLUME 89 FL (80-99); MONOCYTES % (AUTO) 5.5 % (1.0-10.0); NEUTROPHILS % (AUTO) 84.7 % (45.0-75.0); PLATELET COUNT 200 K/UL (150-450); RED BLOOD COUNT 3.69 M/UL (4.20-5.40); RED CELL DISTRIBUTION WIDTH 13.6 % (11.6-14.8)
[2017-11-02 02:56] LABS: ANION GAP 9 mmol/L (5-15); BLOOD UREA NITROGEN 83 mg/dL (7-18); CALCIUM 7.3 MG/DL (8.5-10.1); CARBON DIOXIDE 27 MMOL/L (21-32); CHLORIDE 103 MMOL/L (98-107); CREATININE 3.4 MG/DL (0.55-1.30); PHOSPHORUS 5.5 MG/DL (2.5-4.9); POTASSIUM 3.4 MMOL/L (3.5-5.1); SODIUM 139 MMOL/L (136-145)
[2017-11-02] MEDS ORDERED: Heparin 25,000u/D5W 500ml 500 ML IV SCH ×2 (03:30→11:30)
[2017-11-02] MEDS ORDERED: Heparin 5000 units/ml inj IV ONE (03:45)
[2017-11-02 04:00] VITALS: BP 189/77
[2017-11-02] MEDS: Imdur 30mg tab ORAL SCH (05:46)
[2017-11-02] MEDS ORDERED: HydrALAZINE 50mg tab ORAL SCH (06:00)
[2017-11-02 08:00] VITALS: BP 154/79
[2017-11-02] MEDS: Oxymetazoline 0.05% Na Spray 30ml NASAL SCH ×2 (09:00→17:39)
[2017-11-02] MEDS: Docusate 100mg cap ORAL SCH ×3 (09:01→17:39)
[2017-11-02] MEDS: Azithromycin 250mg tab ORAL SCH (09:02)
[2017-11-02] MEDS: Aspirin EC 81mg tab ORAL SCH (09:02)
[2017-11-02] MEDS: guaiFENesin ER 600mg tab ORAL SCH ×2 (09:03→17:40)
--- NOTE | 2017-11-02 10:13 | Nephrology Progress Note ---
Assessment/Plan Problem List: (1) Renal failure (2) Hypertensive heart disease (3) Hypertensive urgency (4) MOLLY on CKD Assessment plan: status: Renal failure , Acute + Underlying chronic Cr 3.4 Hypertensive heart and kidney disease Hypertensive urgency CHF Plan Plan: Adjust BP meds- K supplement Avoid Nephrotoxics Monitor I&O 2D Echo Diurese Kidney OSVALDO monitor renal parameters Urine studies Subjective ROS Limited/Unobtainable: No Constitutional: Reports: malaise, weakness Objective Objective Last 24 Hour Vital Signs Date Time Temp Pulse Resp B/P (MAP) Pulse Ox O2 Delivery O2 Flow Rate FiO2 11/02/17 09:02 82 149/83 11/02/17 09:02 82 149/83 11/02/17 07:19 Room Air 11/02/17 07:19 85 20 Room Air 21 11/02/17 07:10 85 20 93 Room Air 21 11/02/17 07:10 93 Room Air 21 11/02/17 05:46 149/83 11/02/17 05:46 149/83 11/02/17 04:00 97.5 82 24 189/77 98 Nasal Cannula 2.0 11/02/17 02:14 77 22 99 Nasal Cannula 3.0 32 11/02/17 02:02 92 Nasal Cannula 4.0 36 11/02/17 02:02 84 24 92 Nasal Cannula 2.0 28 11/02/17 02:02 Nasal Cannula 4.0 36 11/02/17 00:00 97.7 82 24 154/84 96 Nasal Cannula 2.0 11/02/17 00:00 76 11/01/17 23:41 Nasal Cannula 4.0 36 11/01/17 23:41 95 Nasal Cannula 4.0 36 11/01/17 22:21 103/71 11/01/17 21:54 85 112/72 11/01/17 20:00 97.3 85 25 142/72 95 Nasal Cannula 2.0 11/01/17 20:00 82 11/01/17 19:00 105 20 Nasal Cannula 4.0 36 11/01/17 18:29 Nasal Cannula 2.0 28 11/01/17 18:29 94 Nasal Cannula 2.0 28 11/01/17 16:52 98.1 11/01/17 16:45 98.1 11/01/17 16:00 84 11/01/17 16:00 98.1 85 19 159/73 85 Nasal Cannula 2.0 11/01/17 15:55 100.8 Nasal Cannula 11/01/17 14:55 128/69 11/01/17 13:29 90 22 96 Nasal Cannula 2.0 28 11/01/17 13:19 86 24 94 Nasal Cannula 2.0 28 11/01/17 12:02 101 20 Nasal Cannula 4.0 36 11/01/17 12:01 94 Nasal Cannula 4.0 36 11/01/17 12:00 97.3 85 19 128/69 85 Nasal Cannula 11/01/17 12:00 97 11/01/17 10:58 99 163/80 11/01/17 10:58 99 163/80 Intake and Output 11/01/17 11/02/17 19:00 07:00 Intake Total 582 ml 322.984 ml Output Total 2000 ml 2300 ml Balance -1418 ml -1977.016 ml Intake Oral 472 ml IV Total 110 ml 322.984 ml Output Urine Total 2000 ml 2300 ml # Bowel Movements 1 Laboratory Tests 11/01/17 19:55: White Blood Count 5.9, Red Blood Count 3.62L, Hemoglobin 9.8L, Hematocrit 32.2L , Mean Corpuscular Volume 89, Mean Corpuscular Hemoglobin 27.1, Mean Corpuscular Hemoglobin Concent 30.5L, Red Cell Distribution Width 13.4, Platelet Count 200, Mean Platelet Volume 7.0, Neutrophils (%) (Auto) 82.2H, Lymphocytes (%) (Auto) 10.4L, Monocytes (%) (Auto) 6.3, Eosinophils (%) (Auto) 0.0, Basophils (%) (Auto) 1.1, Activated Partial Thromboplast Time 32 11/02/17 02:30: White Blood Count 6.0, Red Blood Count 3.69L, Hemoglobin 10.6L, Hematocrit 32.8L , Mean Corpuscular Volume 89, Mean Corpuscular Hemoglobin 28.6, Mean Corpuscular Hemoglobin Concent 32.2, Red Cell Distribution Width 13.6, Platelet Count 200, Mean Platelet Volume 6.7, Neutrophils (%) (Auto) 84.7H, Lymphocytes ( %) (Auto) 8.6L, Monocytes (%) (Auto) 5.5, Eosinophils (%) (Auto) 0.1, Basophils (%) (Auto) 1.0, Activated Partial Thromboplast Time 41H, Sodium Level 139, Potassium Level 3.4L, Chloride Level 103, Carbon Dioxide Level 27, Anion Gap 9, Blood Urea Nitrogen 83H, Creatinine 3.4H, Estimat Glomerular Filtration Rate , Glucose Level 125H, Calcium Level 7.3L, Phosphorus Level 5.5H, Magnesium Level 2.2 11/02/17 09:45: Activated Partial Thromboplast Time [Pending] Height (Feet): 5 Height (Inches): 3.00 Weight (Pounds): 186 General Appearance: no apparent distress Cardiovascular: normal rate Respiratory/Chest: decreased breath sounds, rhonchi - bilaterally Abdomen: soft VALENCIA MERCER Nov 02, 2017 10:13
[2017-11-02 12:00] VITALS: BP 142/71
--- NOTE | 2017-11-02 13:12 | Cardiac Electrophysiology PN ---
Assessment/Plan Assessment/Plan 1. Shortness of breath due to volume overload due to renal failure and congestive heart failure. The BNP is almost 10,000. Troponin is 0.029. Echocardiogram showed EF 55% 2. Accelerated hypertension. Continue Coreg 3.125 bid, hydralazine 50 bid, Imdur, Lasix 40 iv bid and Norvasc and p.r.n. clonidine 3. Renal failure 4. Bilateral LE DVT on heparin. Had VQ scan today. ROSMERY RN Subjective Subjective Feeling better with diuresis. No arrhythmias on tele Objective Last 24 Hour Vital Signs Date Time Temp Pulse Resp B/P (MAP) Pulse Ox O2 Delivery O2 Flow Rate FiO2 11/02/17 12:00 98.3 83 18 142/71 100 Nasal Cannula 2.0 11/02/17 09:02 82 149/83 11/02/17 09:02 82 149/83 11/02/17 08:00 97.7 88 18 154/79 99 Nasal Cannula 2.0 11/02/17 08:00 93 11/02/17 07:19 Room Air 11/02/17 07:19 85 20 Room Air 21 11/02/17 07:10 85 20 93 Room Air 21 11/02/17 07:10 93 Room Air 21 11/02/17 05:46 149/83 11/02/17 05:46 149/83 11/02/17 04:00 97.5 82 24 189/77 98 Nasal Cannula 2.0 11/02/17 02:14 77 22 99 Nasal Cannula 3.0 32 11/02/17 02:02 92 Nasal Cannula 4.0 36 11/02/17 02:02 84 24 92 Nasal Cannula 2.0 28 11/02/17 02:02 Nasal Cannula 4.0 36 11/02/17 00:00 97.7 82 24 154/84 96 Nasal Cannula 2.0 11/02/17 00:00 76 11/01/17 23:41 Nasal Cannula 4.0 36 11/01/17 23:41 95 Nasal Cannula 4.0 36 11/01/17 22:21 103/71 11/01/17 21:54 85 112/72 11/01/17 20:00 97.3 85 25 142/72 95 Nasal Cannula 2.0 11/01/17 20:00 82 11/01/17 19:00 105 20 Nasal Cannula 4.0 36 11/01/17 18:29 Nasal Cannula 2.0 28 11/01/17 18:29 94 Nasal Cannula 2.0 28 11/01/17 16:52 98.1 11/01/17 16:45 98.1 11/01/17 16:00 84 11/01/17 16:00 98.1 85 19 159/73 85 Nasal Cannula 2.0 11/01/17 15:55 100.8 Nasal Cannula 11/01/17 14:55 128/69 11/01/17 13:29 90 22 96 Nasal Cannula 2.0 28 11/01/17 13:19 86 24 94 Nasal Cannula 2.0 28 Intake and Output 11/01/17 11/02/17 19:00 07:00 Intake Total 582 ml 322.984 ml Output Total 2000 ml 2300 ml Balance -1418 ml -1977.016 ml Intake Oral 472 ml IV Total 110 ml 322.984 ml Output Urine Total 2000 ml 2300 ml # Bowel Movements 1 Laboratory Tests Test 11/01/17 19:55 11/02/17 02:30 11/02/17 09:45 White Blood Count 5.9 K/UL (4.8-10.8) 6.0 K/UL (4.8-10.8) Red Blood Count 3.62 M/UL (4.20-5.40) L 3.69 M/UL (4.20-5.40) L Hemoglobin 9.8 G/DL (12.0-16.0) L 10.6 G/DL (12.0-16.0) L Hematocrit 32.2 % (37.0-47.0) L 32.8 % (37.0-47.0) L Mean Corpuscular Volume 89 FL (80-99) 89 FL (80-99) Mean Corpuscular Hemoglobin 27.1 PG (27.0-31.0) 28.6 PG (27.0-31.0) Mean Corpuscular Hemoglobin Concent 30.5 G/DL (32.0-36.0) L 32.2 G/DL (32.0-36.0) Red Cell Distribution Width 13.4 % (11.6-14.8) 13.6 % (11.6-14.8) Platelet Count 200 K/UL (150-450) 200 K/UL (150-450) Mean Platelet Volume 7.0 FL (6.5-10.1) 6.7 FL (6.5-10.1) Neutrophils (%) (Auto) 82.2 % (45.0-75.0) H 84.7 % (45.0-75.0) H Lymphocytes (%) (Auto) 10.4 % (20.0-45.0) L 8.6 % (20.0-45.0) L Monocytes (%) (Auto) 6.3 % (1.0-10.0) 5.5 % (1.0-10.0) Eosinophils (%) (Auto) 0.0 % (0.0-3.0) 0.1 % (0.0-3.0) Basophils (%) (Auto) 1.1 % (0.0-2.0) 1.0 % (0.0-2.0) Activated Partial Thromboplast Time 32 SEC (23-33) 41 SEC (23-33) H > 150 SEC (23-33) *H Sodium Level 139 MMOL/L (136-145) Potassium Level 3.4 MMOL/L (3.5-5.1) L Chloride Level 103 MMOL/L (98-107) Carbon Dioxide Level 27 MMOL/L (21-32) Anion Gap 9 mmol/L (5-15) Blood Urea Nitrogen 83 mg/dL (7-18) H Creatinine 3.4 MG/DL (0.55-1.30) H Estimat Glomerular Filtration Rate mL/min (>60) Glucose Level 125 MG/DL (74-106) H Calcium Level 7.3 MG/DL (8.5-10.1) L Phosphorus Level 5.5 MG/DL (2.5-4.9) H Magnesium Level 2.2 MG/DL (1.8-2.4) Microbiology Date/Time Source Procedure Growth Status 10/31/17 18:15 Blood Blood Culture - Preliminary NO GROWTH AFTER 24 HOURS Resulted 10/31/17 18:05 Blood Blood Culture - Preliminary NO GROWTH AFTER 24 HOURS Resulted 11/01/17 15:00 Nasal Nares Influenza Types A,B Antigen (MARY) - Final Complete Objective HEAD AND NECK: Shows no JVD. LUNGS: Decreased breath sounds. CARDIOVASCULAR: Regular S1 and S2 with no gallop or murmur. ABDOMEN: Soft. EXTREMITIES: A 1+ pitting edema. ALEJANDRA GUTIERREZ Nov 02, 2017 13:12
[2017-11-02] MEDS: HydrALAZINE 50mg tab ORAL SCH ×2 (13:13→20:25)
[2017-11-02] MEDS: cefTRIAXone 1 GM in D5W 55 ML IVPB SCH (13:29)
--- NOTE | 2017-11-02 14:19 | General Progress Note ---
Assessment/Plan Problem List: (1) Acute on chronic diastolic (congestive) heart failure ICD Codes: I50.33 - Acute on chronic diastolic (congestive) heart failure SNOMED: 39401376, 927228533 (2) Hypertensive urgency ICD Codes: I16.0 - Hypertensive urgency SNOMED: 772226866 (3) MOLLY on CKD (4) Sepsis ICD Codes: A41.9 - Sepsis, unspecified organism SNOMED: 86442169 (5) CAP (community acquired pneumonia) Assessment & Plan: Left lower lobe consolidation on CT ICD Codes: J18.9 - Pneumonia, unspecified organism SNOMED: 206975223 (6) Hypertensive heart disease ICD Codes: I11.9 - Hypertensive heart disease without heart failure SNOMED: 70785844 (7) Cardiorenal syndrome ICD Codes: I13.10 - Hypertensive heart and chronic kidney disease without heart failure, with stage 1 through stage 4 chronic kidney disease, or unspecified chronic kidney disease SNOMED: 463424677 (8) NSTEMI (non-ST elevated myocardial infarction) ICD Codes: I21.4 - Non-ST elevation (NSTEMI) myocardial infarction SNOMED: 848485230 (9) Abdominal pain Assessment & Plan: possibly 2/2 underlying left lower lobe pneumonia ICD Codes: R10.9 - Unspecified abdominal pain SNOMED: 11270290 (10) Acute bilateral deep vein thrombosis (DVT) of femoral veins ICD Codes: I82.413 - Acute embolism and thrombosis of femoral vein, bilateral SNOMED: 754940084028393 Status: stable Assessment/Plan Trend trop/EKG--peaked at 0.063 F/u TTE--EF wnl, diastolic dysfcn, LVH Cardiology consulted, appreciate rec's BP control: cont imdur 60mg qAM, amlodipine 10mg daily, hydralazine 50mg TID,c oreg 6.25mg BID Diurese w/ lasix 40mg IV BID, I/O goal -1 to 2L Strict I/O's, daily weights Cont box for strict I/Os Monitor CXR Trend lytes and replete Trend SCr Cont heparin gtt for acute b/l DVT F/u VQ scan Heme/onc consult Pulmonology consult Empiric ceftriaxone + azithro for possible CAP Empiric tamiflu Check for influenza A & B IgM Monitor lytes and replete Monitor SC closely F/u BLE venous duplex Renal consulted Check renal U/S--small L kidney F/u CT a/p--shows LLL consolidation Pain control, bowel regimen Supportive care DVT Prophylaxis: SCD, HSQ Code Status: Full Hospital Classification Declaration: Based on this initial evaluation, and depending on the patient's clinical course, I anticipate that this patient will require hospitalization for 2-3 days for hypertensive urgency, CHF, MOLLY, PNA and close respiratory/hemodynamic monitoring. Disposition: Once the patient is stable to leave the hospital, I anticipate the patient will likely be discharged to the following environment: home with HH vs SNF Discussed with patient/family, nursing staff, SW/CM, cardiology regarding clinical status, treatment course, and disposition planning. D/w cardiology re BP control. D/w renal re MOLLY mgmt. D/w pulm and heme/onc re anticoagulation Time of note may not reflect time of encounter. Subjective Date patient seen: Nov 02, 2017 Time patient seen: 14:18 ROS Limited/Unobtainable: No Constitutional: Reports: no symptoms HEENT: Reports: no symptoms Cardiovascular: Reports: edema Respiratory: Reports: cough, orthopnea, shortness of breath, SOB with excertion Gastrointestinal/Abdominal: Reports: no symptoms Genitourinary: Reports: no symptoms Neurologic/Psychiatric: Reports: no symptoms Endocrine: Reports: no symptoms Hematologic/Lymphatic: Reports: no symptoms Allergies: Coded Allergies: PENICILLINS (Verified Allergy, Unknown, 10/31/17) All Systems: reviewed and negative except above Subjective No acute o/n events Diuresing well BP improved Found to have acute DVT and started on heparin gtt Noted to have some epistaxis and bleeding from IV site. PTT supratherapeutic Pt cont to c/o SOB, abd pain, some cough though slowly improving. Denies f/c, n/ v, d/c, chest pain D/w family at bedside Objective Last 24 Hour Vital Signs Date Time Temp Pulse Resp B/P (MAP) Pulse Ox O2 Delivery O2 Flow Rate FiO2 11/02/17 13:57 87 20 Room Air 21 11/02/17 13:50 87 20 Room Air 21 11/02/17 13:13 142/71 11/02/17 12:00 98.3 83 18 142/71 100 Nasal Cannula 2.0 11/02/17 12:00 93 11/02/17 09:02 82 149/83 11/02/17 09:02 82 149/83 11/02/17 08:00 97.7 88 18 154/79 99 Nasal Cannula 2.0 11/02/17 08:00 93 11/02/17 07:19 Room Air 11/02/17 07:19 85 20 Room Air 21 11/02/17 07:10 85 20 93 Room Air 21 11/02/17 07:10 93 Room Air 21 11/02/17 05:46 149/83 11/02/17 05:46 149/83 11/02/17 04:00 97.5 82 24 189/77 98 Nasal Cannula 2.0 11/02/17 02:14 77 22 99 Nasal Cannula 3.0 32 11/02/17 02:02 92 Nasal Cannula 4.0 36 11/02/17 02:02 84 24 92 Nasal Cannula 2.0 28 11/02/17 02:02 Nasal Cannula 4.0 36 11/02/17 00:00 97.7 82 24 154/84 96 Nasal Cannula 2.0 11/02/17 00:00 76 11/01/17 23:41 Nasal Cannula 4.0 36 11/01/17 23:41 95 Nasal Cannula 4.0 36 11/01/17 22:21 103/71 11/01/17 21:54 85 112/72 11/01/17 20:00 97.3 85 25 142/72 95 Nasal Cannula 2.0 11/01/17 20:00 82 11/01/17 19:00 105 20 Nasal Cannula 4.0 36 11/01/17 18:29 Nasal Cannula 2.0 28 11/01/17 18:29 94 Nasal Cannula 2.0 28 11/01/17 16:52 98.1 11/01/17 16:45 98.1 11/01/17 16:00 84 11/01/17 16:00 98.1 85 19 159/73 85 Nasal Cannula 2.0 11/01/17 15:55 100.8 Nasal Cannula 11/01/17 14:55 128/69 Intake and Output 11/01/17 11/02/17 19:00 07:00 Intake Total 582 ml 322.984 ml Output Total 2000 ml 2300 ml Balance -1418 ml -1977.016 ml Intake Oral 472 ml IV Total 110 ml 322.984 ml Output Urine Total 2000 ml 2300 ml # Bowel Movements 1 Laboratory Tests 11/01/17 19:55: White Blood Count 5.9, Red Blood Count 3.62L, Hemoglobin 9.8L, Hematocrit 32.2L , Mean Corpuscular Volume 89, Mean Corpuscular Hemoglobin 27.1, Mean Corpuscular Hemoglobin Concent 30.5L, Red Cell Distribution Width 13.4, Platelet Count 200, Mean Platelet Volume 7.0, Neutrophils (%) (Auto) 82.2H, Lymphocytes (%) (Auto) 10.4L, Monocytes (%) (Auto) 6.3, Eosinophils (%) (Auto) 0.0, Basophils (%) (Auto) 1.1, Activated Partial Thromboplast Time 32 11/02/17 02:30: White Blood Count 6.0, Red Blood Count 3.69L, Hemoglobin 10.6L, Hematocrit 32.8L , Mean Corpuscular Volume 89, Mean Corpuscular Hemoglobin 28.6, Mean Corpuscular Hemoglobin Concent 32.2, Red Cell Distribution Width 13.6, Platelet Count 200, Mean Platelet Volume 6.7, Neutrophils (%) (Auto) 84.7H, Lymphocytes ( %) (Auto) 8.6L, Monocytes (%) (Auto) 5.5, Eosinophils (%) (Auto) 0.1, Basophils (%) (Auto) 1.0, Activated Partial Thromboplast Time 41H, Sodium Level 139, Potassium Level 3.4L, Chloride Level 103, Carbon Dioxide Level 27, Anion Gap 9, Blood Urea Nitrogen 83H, Creatinine 3.4H, Estimat Glomerular Filtration Rate , Glucose Level 125H, Calcium Level 7.3L, Phosphorus Level 5.5H, Magnesium Level 2.2 11/02/17 09:45: Activated Partial Thromboplast Time > 150*H Height (Feet): 5 Height (Inches): 3.00 Weight (Pounds): 186 Objective General: alert, cooperative, no distress, appears stated age Head: normocephalic, without obvious abnormality, atraumatic Eyes: conjunctivae/corneas clear. PERRL, EOM's intact Throat: lips, mucosa, and tongue normal. MMM Neck: supple, symmetrical, trachea midline, and +JVD Lungs: +crackles b/l Heart: regular rate and rhythm, S1, S2 normal, no murmur, click, rub or gallop Abdomen: soft, +mild TTP of b/l lower quadrants, non-distended, bowel sounds normal Extremities: extremities normal, atraumatic, no cyanosis, 1-2+ pitting edema to knees Pulses: 2+ and symmetric Skin: skin color, texture, turgor normal; no rashes or lesions Neurologic: grossly normal, no focal deficits Jax Hines M.D. Nov 02, 2017 14:18
--- NOTE | 2017-11-02 15:21 | Consultation ---
History of Present Illness General Date patient seen: Nov 02, 2017 Chief Complaint: Dyspnea/Respdistress Referring physician: Dr. Titus Reason for Consultation: dyspnea Present Illness HPI 77 year old female with hx of CAD, HTN, chronic renal disease presented to ER with CC of waking up with dyspnea when she is laying down at night. She denies any chest pain. There's been a productive cough. This has worsened recently. Pain in abdomen is 8/10, constant, aching/burning. Her CXR and CT of chest showed consolidation. She had a fever of 102 without leukocytosis. she is admitted for Pneumonia and possible pulmonary edema. Allergies: Coded Allergies: PENICILLINS (Verified Allergy, Unknown, 10/31/17) Medication History Scheduled Isosorbide Mononitrate (Isosorbide Mononitrate Er), 60 MG PO DAILY, (Reported) Losartan/Hydrochlorothiazide (Losartan-Hctz 100-25 Mg Tab), 1 TAB ORAL DAILY, ( Reported) Patient History Healthcare decision maker [place] Resuscitation status Full Code Advanced Directive on File Past Medical/Surgical History Past Medical/Surgical History: (1) HTN (hypertension) (2) Renal insufficiency (3) Congestive heart failure Review of Systems Constitutional: Reports: malaise, weakness Respiratory: Reports: shortness of breath, wheezing Genitourinary: Reports: no symptoms Skin: Reports: no symptoms Physical Exam General Appearance: WD/WN Lines, tubes and drains: peripheral HEENT: normocephalic, anicteric Neck: non-tender, normal alignment Respiratory/Chest: chest wall non-tender, lungs clear Cardiovascular/Chest: normal peripheral pulses, normal rate Abdomen: normal bowel sounds, soft Genitourinary/Rectal: normal genital exam, normal rectal exam Extremities: normal range of motion, normal inspection Skin Exam: warm/dry Neurologic: no motor/sensory deficits Last 24 Hour Vital Signs Date Time Temp Pulse Resp B/P (MAP) Pulse Ox O2 Delivery O2 Flow Rate FiO2 11/02/17 13:57 87 20 Room Air 21 11/02/17 13:50 87 20 Room Air 21 11/02/17 13:13 142/71 11/02/17 12:00 98.3 83 18 142/71 100 Nasal Cannula 2.0 11/02/17 12:00 93 11/02/17 09:02 82 149/83 11/02/17 09:02 82 149/83 1/8/18 08:00 97.7 88 18 154/79 99 Nasal Cannula 2.0 11/02/17 08:00 93 11/02/17 07:19 Room Air 11/02/17 07:19 85 20 Room Air 21 11/02/17 07:10 85 20 93 Room Air 21 11/02/17 07:10 93 Room Air 21 11/02/17 05:46 149/83 11/02/17 05:46 149/83 11/02/17 04:00 97.5 82 24 189/77 98 Nasal Cannula 2.0 11/02/17 02:14 77 22 99 Nasal Cannula 3.0 32 11/02/17 02:02 92 Nasal Cannula 4.0 36 11/02/17 02:02 84 24 92 Nasal Cannula 2.0 28 11/02/17 02:02 Nasal Cannula 4.0 36 11/02/17 00:00 97.7 82 24 154/84 96 Nasal Cannula 2.0 11/02/17 00:00 76 11/01/17 23:41 Nasal Cannula 4.0 36 11/01/17 23:41 95 Nasal Cannula 4.0 36 11/01/17 22:21 103/71 11/01/17 21:54 85 112/72 11/01/17 20:00 97.3 85 25 142/72 95 Nasal Cannula 2.0 11/01/17 20:00 82 11/01/17 19:00 105 20 Nasal Cannula 4.0 36 11/01/17 18:29 Nasal Cannula 2.0 28 11/01/17 18:29 94 Nasal Cannula 2.0 28 11/01/17 16:52 98.1 11/01/17 16:45 98.1 11/01/17 16:00 84 11/01/17 16:00 98.1 85 19 159/73 85 Nasal Cannula 2.0 11/01/17 15:55 100.8 Nasal Cannula Intake and Output 11/01/17 11/02/17 19:00 07:00 Intake Total 582 ml 322.984 ml Output Total 2000 ml 2300 ml Balance -1418 ml -1977.016 ml Intake Oral 472 ml IV Total 110 ml 322.984 ml Output Urine Total 2000 ml 2300 ml # Bowel Movements 1 Laboratory Tests Test 1/7/18 19:55 11/02/17 02:30 11/02/17 09:45 White Blood Count 5.9 K/UL (4.8-10.8) 6.0 K/UL (4.8-10.8) Red Blood Count 3.62 M/UL (4.20-5.40) L 3.69 M/UL (4.20-5.40) L Hemoglobin 9.8 G/DL (12.0-16.0) L 10.6 G/DL (12.0-16.0) L Hematocrit 32.2 % (37.0-47.0) L 32.8 % (37.0-47.0) L Mean Corpuscular Volume 89 FL (80-99) 89 FL (80-99) Mean Corpuscular Hemoglobin 27.1 PG (27.0-31.0) 28.6 PG (27.0-31.0) Mean Corpuscular Hemoglobin Concent 30.5 G/DL (32.0-36.0) L 32.2 G/DL (32.0-36.0) Red Cell Distribution Width 13.4 % (11.6-14.8) 13.6 % (11.6-14.8) Platelet Count 200 K/UL (150-450) 200 K/UL (150-450) Mean Platelet Volume 7.0 FL (6.5-10.1) 6.7 FL (6.5-10.1) Neutrophils (%) (Auto) 82.2 % (45.0-75.0) H 84.7 % (45.0-75.0) H Lymphocytes (%) (Auto) 10.4 % (20.0-45.0) L 8.6 % (20.0-45.0) L Monocytes (%) (Auto) 6.3 % (1.0-10.0) 5.5 % (1.0-10.0) Eosinophils (%) (Auto) 0.0 % (0.0-3.0) 0.1 % (0.0-3.0) Basophils (%) (Auto) 1.1 % (0.0-2.0) 1.0 % (0.0-2.0) Activated Partial Thromboplast Time 32 SEC (23-33) 41 SEC (23-33) H > 150 SEC (23-33) *H Sodium Level 139 MMOL/L (136-145) Potassium Level 3.4 MMOL/L (3.5-5.1) L Chloride Level 103 MMOL/L (98-107) Carbon Dioxide Level 27 MMOL/L (21-32) Anion Gap 9 mmol/L (5-15) Blood Urea Nitrogen 83 mg/dL (7-18) H Creatinine 3.4 MG/DL (0.55-1.30) H Estimat Glomerular Filtration Rate mL/min (>60) Glucose Level 125 MG/DL (74-106) H Calcium Level 7.3 MG/DL (8.5-10.1) L Phosphorus Level 5.5 MG/DL (2.5-4.9) H Magnesium Level 2.2 MG/DL (1.8-2.4) Height (Feet): 5 Height (Inches): 3.00 Weight (Pounds): 186 Medications Current Medications Medications (Trade) Dose Ordered Sig/Luis Carlos Route PRN Reason Start Time Stop Time Status Last Admin Dose Admin Acetaminophen (Tylenol) 650 mg Q4H PRN ORAL Mild Pain (Pain Scale 1-3) 10/31/17 17:45 11/30/17 17:44 11/01/17 15:53 Acetaminophen (Tylenol) 650 mg Q4H PRN ORAL fever 10/31/17 17:45 11/30/17 17:44 Albuterol/ Ipratropium (Albuterol/ Ipratropium) 3 ml Q2H PRN HHN Shortness of Breath 10/31/17 17:45 11/05/17 17:44 11/01/17 02:26 Albuterol/ Ipratropium (Albuterol/ Ipratropium) 3 ml Q6HRT HHN 11/01/17 13:00 11/06/17 12:59 11/02/17 13:54 Amlodipine Besylate (Norvasc) 10 mg DAILY ORAL 11/02/17 09:00 11/30/17 17:59 11/02/17 09:02 Aspirin (Ecotrin) 81 mg DAILY ORAL 11/01/17 09:00 12/01/17 08:59 11/02/17 09:02 Azithromycin (Zithromax) 500 mg DAILY ORAL 11/01/17 12:15 11/08/17 12:14 11/02/17 09:02 Carvedilol (Coreg) 6.25 mg EVERY 12 HOURS ORAL 11/02/17 21:00 12/02/17 20:59 Ceftriaxone Sodium 1 gm/ Dextrose 55 ml @ 110 mls/hr Q24H IVPB 11/01/17 13:30 11/08/17 13:29 11/02/17 13:29 Clonidine HCl (Catapres) 0.1 mg Q4H PRN ORAL bp over 160 syst 11/01/17 09:45 12/01/17 09:44 Dextrose (Dextrose 50%) STAT PRN IV Hypoglycemia 10/31/17 17:45 11/30/17 17:44 Docusate Sodium (Colace) 100 mg TID ORAL 11/01/17 13:00 11/30/17 20:59 11/02/17 13:09 Furosemide (Lasix) 40 mg DAILY IV 11/03/17 09:00 11/30/17 20:59 Guaifenesin (Mucinex ER) 600 mg TWICE A DAY ORAL 11/01/17 12:15 12/01/17 12:14 11/02/17 09:03 Guaifenesin (Robitussin) 100 mg Q4H PRN ORAL For Cough 11/01/17 12:15 12/01/17 12:14 11/01/17 13:02 Hydralazine HCl (Apresoline) 50 mg Q8HR ORAL 11/02/17 14:00 12/02/17 13:59 11/02/17 13:13 Isosorbide Mononitrate (Imdur) 60 mg ACBREAKFAST ORAL 11/01/17 06:30 12/01/17 06:29 11/02/17 05:46 Morphine Sulfate (Morphine Sulfate) 2 mg Q4H PRN IVP Moderate Pain (Pain Scale 4-6) 10/31/17 17:45 11/07/17 17:44 Morphine Sulfate (Morphine Sulfate) 4 mg Q4H PRN IVP Severe Pain (Pain Scale 7-10) 10/31/17 17:45 11/07/17 17:44 Ondansetron HCl (Zofran) 4 mg Q6H PRN IVP Nausea & Vomiting 10/31/17 17:45 11/30/17 17:44 Oseltamivir Phosphate (Tamiflu) 75 mg TWICE A DAY ORAL 11/02/17 18:00 11/07/17 17:59 UNV Oxymetazoline HCl (Afrin Nasal [place]) 1 spray BID NASAL 11/02/17 09:00 12/02/17 08:59 Pantoprazole (Protonix) 40 mg DAILY ORAL 11/01/17 10:00 12/01/17 09:59 11/02/17 09:02 Polyethylene Glycol (Miralax) 17 gm HSPRN PRN ORAL Constipation 10/31/17 17:45 11/30/17 17:44 Potassium Chloride (K-Dur) 40 meq DAILY ORAL 11/03/17 09:00 12/03/17 08:59 Assessment/Plan Problem List: (1) Pneumonia ICD Codes: J18.9 - Pneumonia, unspecified organism SNOMED: 978066322 Qualifiers: Qualified Codes: J18.1 - Lobar pneumonia, unspecified organism (2) Renal failure ICD Codes: N19 - Unspecified kidney failure SNOMED: 33545574 Qualifiers: Qualified Codes: N17.9 - Acute kidney failure, unspecified (3) Acute on chronic diastolic (congestive) heart failure ICD Codes: I50.33 - Acute on chronic diastolic (congestive) heart failure SNOMED: 89337516, 656396602 (4) Hypertensive heart disease ICD Codes: I11.9 - Hypertensive heart disease without heart failure SNOMED: 31964981 (5) Congestive heart failure ICD Codes: I50.9 - Heart failure, unspecified SNOMED: 91993351 Qualifiers: Qualified Codes: I50.41 - Acute combined systolic (congestive) and diastolic (congestive) heart failure Assessment/Plan respiratory treatment check sputum Add Tamiflu, f/u cxr in am, check BNP DVT noticed on femoral veins. echo checked f/u cardio recommendations. IZABELA ROBLES Nov 02, 2017 15:21
[2017-11-02 16:00] VITALS: BP 154/78
[2017-11-02 20:00] VITALS: BP 132/69
[2017-11-02] MEDS ORDERED: Carvedilol 6.25mg Tab ORAL SCH (21:00)
--- NOTE | 2017-11-02 21:47 | Diagnostic Imaging Report ---
Indication:Elevated Bun and Creatinine. Technique: Grayscale and duplex Doppler imaging of the kidneys performed. Comparison: None Findings: The size, contour, and echogenicity of the right kidney is within normal limits. Right kidney measures 11.3 cm. The left kidney is small and echogenic measuring 6.4 cm. There is no hydronephrosis. The IVC and urinary bladder are unremarkable. IMPRESSION: Small left kidney.
--- NOTE | 2017-11-02 21:48 | Diagnostic Imaging Report ---
Indication: Chest pain Technique: A ventilation/perfusion scan was performed. Ventilation was performed utilizing 40 mCi of Technetium 99m-DTPA. Perfusion was performed with 5.1 mCi of technetium 99m-MAA injected intravenously. Multiple side by side projections obtained. Findings: Ventilation is heterogeneous with aerosolized tracer within the central bronchi and trachea. Perfusion appears homogeneous with no significant defects demonstrated. Some basilar photopenia noted. Impression: Low probability for pulmonary embolus
--- NOTE | 2017-11-02 21:48 | Diagnostic Imaging Report ---
Indication: Dyspnea Comparison: 10/31/2017 A single view chest radiograph was obtained. Findings: Interstitial edema and prominent pulmonary vascularity and heart size again demonstrated. IMPRESSION: Interstitial edema slightly worse
[2017-11-03] VITALS (9 sets, daily range): BP systolic 148–185; BP diastolic 68–112
--- NOTE | 2017-11-03 | Cardiology Report ---
APPROVED REPORT EKG Measurement Heart [id number] Sinus tachycardia Otherwise normal ECG
[2017-11-03] MEDS: Albuterol/Ipratropium 3ml neb HHN SCH ×4 (02:09→19:59)
[2017-11-03] MEDS: HydrALAZINE 50mg tab ORAL SCH ×3 (05:01→21:31)
[2017-11-03] MEDS: Imdur 30mg tab ORAL SCH (05:02)
[2017-11-03 06:55] LABS: BASOPHILS % (AUTO) 0.9 % (0.0-2.0); EOSINOPHILS % (AUTO) 0.6 % (0.0-3.0); HEMATOCRIT 31.2 % (37.0-47.0); HEMOGLOBIN 10.2 G/DL (12.0-16.0); LYMPHOCYTES % (AUTO) 22.5 % (20.0-45.0); MEAN CORPUSCULAR VOLUME 89 FL (80-99); MONOCYTES % (AUTO) 9.9 % (1.0-10.0); PLATELET COUNT 222 K/UL (150-450); RED CELL DISTRIBUTION WIDTH 13.5 % (11.6-14.8); WHITE BLOOD COUNT 4.8 K/UL (4.8-10.8)
[2017-11-03 07:16] LABS: ALANINE AMINOTRANSFERASE 35 U/L (12-78); ALBUMIN 2.6 G/DL (3.4-5.0); ALBUMIN/GLOBULIN RATIO 0.7 (1.0-2.7); ALKALINE PHOSPHATASE 52 U/L (46-116); ANION GAP 8 mmol/L (5-15); ASPARTATE AMINO TRANSFERASE 34 U/L (15-37); BILIRUBIN,TOTAL 0.4 MG/DL (0.2-1.0); BLOOD UREA NITROGEN 67 mg/dL (7-18); CALCIUM 7.3 MG/DL (8.5-10.1); CARBON DIOXIDE 29 MMOL/L (21-32); CHLORIDE 103 MMOL/L (98-107); CREATININE 2.8 MG/DL (0.55-1.30); PHOSPHORUS 3.7 MG/DL (2.5-4.9); POTASSIUM 3.4 MMOL/L (3.5-5.1); SODIUM 140 MMOL/L (136-145)
[2017-11-03] MEDS: Docusate 100mg cap ORAL SCH ×3 (09:23→17:33)
[2017-11-03] MEDS: Aspirin EC 81mg tab ORAL SCH (09:23)
[2017-11-03] MEDS: Azithromycin 250mg tab ORAL SCH (09:24)
[2017-11-03] MEDS: Carvedilol 6.25mg Tab ORAL SCH ×2 (09:24→21:31)
[2017-11-03] MEDS: Oxymetazoline 0.05% Na Spray 30ml NASAL SCH ×2 (09:24→17:32)
[2017-11-03] MEDS: guaiFENesin ER 600mg tab ORAL SCH ×2 (09:24→17:32)
--- NOTE | 2017-11-03 10:55 | Nephrology Progress Note ---
Assessment/Plan Problem List: (1) Renal failure (2) Hypertensive heart disease (3) Hypertensive urgency (4) MOLLY on CKD Assessment plan: status: Renal failure , Acute + Underlying chronic Cr 3.4 now down to 2.8 Hypertensive heart and kidney disease Hypertensive urgency CHF Plan Plan: Adjust BP meds- K supplement Avoid Nephrotoxics Monitor I&O 2D Echo Diurese Kidney OSVALDO monitor renal parameters Urine studies Subjective ROS Limited/Unobtainable: No Constitutional: Reports: malaise, weakness Objective Objective Last 24 Hour Vital Signs Date Time Temp Pulse Resp B/P (MAP) Pulse Ox O2 Delivery O2 Flow Rate FiO2 11/03/17 09:24 82 152/77 11/03/17 09:23 82 152/77 11/03/17 08:00 97.7 82 18 152/77 93 Nasal Cannula 2.0 11/03/17 07:18 87 20 97 Room Air 21 11/03/17 07:17 Room Air 21 11/03/17 07:10 84 20 92 Room Air 21 11/03/17 07:09 92 Room Air 21 11/03/17 05:04 183/75 11/03/17 05:02 183/75 11/03/17 05:01 183/75 11/03/17 04:51 97.0 80 23 165/68 87 Room Air 11/03/17 04:00 81 11/03/17 02:02 174/112 11/03/17 02:01 92 174/112 11/03/17 02:00 88 20 95 Room Air 21 11/03/17 02:00 88 20 97 Room Air 21 11/03/17 00:00 98 11/03/17 00:00 96.8 83 20 162/77 93 Room Air 11/02/17 20:25 132/69 11/02/17 20:25 81 132/69 11/02/17 20:00 80 11/02/17 20:00 97.7 76 20 132/69 96 Room Air 11/02/17 19:39 89 20 96 Room Air 21 11/02/17 19:38 Room Air 21 11/02/17 19:38 82 20 94 Room Air 21 11/02/17 19:37 94 Room Air 21 11/02/17 16:00 88 11/02/17 16:00 97.9 83 18 154/78 100 Nasal Cannula 2.0 11/02/17 13:57 87 20 Room Air 21 11/02/17 13:50 87 20 Room Air 21 11/02/17 13:13 142/71 11/02/17 12:00 98.3 83 18 142/71 100 Nasal Cannula 2.0 11/02/17 12:00 93 Intake and Output 11/02/17 11/03/17 19:00 07:00 Intake Total 420 ml Output Total 2200 ml 2000 ml Balance -1780 ml -2000 ml Intake Oral 420 ml Output Urine Total 2200 ml 2000 ml # Bowel Movements 1 Laboratory Tests 11/03/17 04:40: White Blood Count 4.8, Red Blood Count 3.50L, Hemoglobin 10.2L, Hematocrit 31.2L , Mean Corpuscular Volume 89, Mean Corpuscular Hemoglobin 29.0, Mean Corpuscular Hemoglobin Concent 32.5, Red Cell Distribution Width 13.5, Platelet Count 222, Mean Platelet Volume 7.3, Neutrophils (%) (Auto) 66.0, Lymphocytes (% ) (Auto) 22.5, Monocytes (%) (Auto) 9.9, Eosinophils (%) (Auto) 0.6, Basophils ( %) (Auto) 0.9, Sodium Level 140, Potassium Level 3.4L, Chloride Level 103, Carbon Dioxide Level 29, Anion Gap 8, Blood Urea Nitrogen 67H, Creatinine 2.8H, Estimat Glomerular Filtration Rate , Glucose Level 98, Uric Acid 11.6H, Calcium Level 7.3L, Phosphorus Level 3.7, Magnesium Level 2.0, Total Bilirubin 0.4, Aspartate Amino Transf (AST/SGOT) 34, Alanine Aminotransferase (ALT/SGPT) 35, Alkaline Phosphatase 52, C-Reactive Protein, Quantitative 12.5H, Pro-B-Type Natriuretic Peptide 3603H, Total Protein 6.3L, Albumin 2.6L, Globulin 3.7, Albumin/Globulin Ratio 0.7L Height (Feet): 5 Height (Inches): 3.00 Weight (Pounds): 183 General Appearance: no apparent distress Cardiovascular: normal rate Respiratory/Chest: decreased breath sounds Abdomen: soft VALENCIA MERCER Nov 03, 2017 10:55
[2017-11-03 11:29] LABS: INR 0.9 (0.9-1.1)
[2017-11-03] MEDS ORDERED: Heparin 25,000u/D5W 500ml 500 ML IV SCH (12:30)
--- NOTE | 2017-11-03 12:38 | Pulmonology Progress Note ---
Assessment/Plan Problems: (1) Renal failure (2) Acute on chronic diastolic (congestive) heart failure (3) Congestive heart failure (4) Pneumonia (5) DVT (deep venous thrombosis) (6) Hypertensive heart disease Assessment/Plan renal funtion improving hold heparin drip start Eliquis. adjusted dose I would continue Tamiflu for now med/surg clonidine for prn bp > 160 Subjective ROS Limited/Unobtainable: No Constitutional: Reports: no symptoms HEENT: Repors: no symptoms Cardiovascular: Reports: no symptoms Gastrointestinal/Abdominal: Reports: no symptoms Allergies: Coded Allergies: PENICILLINS (Verified Allergy, Unknown, 10/31/17) Objective Last 24 Hour Vital Signs Date Time Temp Pulse Resp B/P (MAP) Pulse Ox O2 Delivery O2 Flow Rate FiO2 11/03/17 09:24 82 152/77 11/03/17 09:23 82 152/77 11/03/17 08:00 97.7 82 18 152/77 93 Nasal Cannula 2.0 11/03/17 08:00 83 11/03/17 07:18 87 20 97 Room Air 21 11/03/17 07:17 Room Air 21 11/03/17 07:10 84 20 92 Room Air 21 11/03/17 07:09 92 Room Air 21 11/03/17 05:04 183/75 11/03/17 05:02 183/75 11/03/17 05:01 183/75 11/03/17 04:51 97.0 80 23 165/68 87 Room Air 11/03/17 04:00 81 11/03/17 02:02 174/112 11/03/17 02:01 92 174/112 11/03/17 02:00 88 20 95 Room Air 21 11/03/17 02:00 88 20 97 Room Air 21 11/03/17 00:00 98 11/03/17 00:00 96.8 83 20 162/77 93 Room Air 11/02/17 20:25 132/69 11/02/17 20:25 81 132/69 11/02/17 20:00 80 11/02/17 20:00 97.7 76 20 132/69 96 Room Air 11/02/17 19:39 89 20 96 Room Air 21 11/02/17 19:38 Room Air 21 11/02/17 19:38 82 20 94 Room Air 21 11/02/17 19:37 94 Room Air 21 11/02/17 16:00 88 11/02/17 16:00 97.9 83 18 154/78 100 Nasal Cannula 2.0 11/02/17 13:57 87 20 Room Air 21 11/02/17 13:50 87 20 Room Air 21 11/02/17 13:13 142/71 Intake and Output 11/02/17 11/03/17 19:00 07:00 Intake Total 420 ml Output Total 2200 ml 2000 ml Balance -1780 ml -2000 ml Intake Oral 420 ml Output Urine Total 2200 ml 2000 ml # Bowel Movements 1 General Appearance: WD/WN HEENT: normocephalic, atraumatic Respiratory/Chest: chest wall non-tender, lungs clear Breasts: no masses Cardiovascular: normal peripheral pulses, normal rate Abdomen: normal bowel sounds, soft, non tender, no scars Extremities: no cyanosis 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 Microbiology Date/Time Source Procedure Growth Status 10/31/17 18:15 Blood Blood Culture - Preliminary NO GROWTH AFTER 48 HOURS Resulted 10/31/17 18:05 Blood Blood Culture - Preliminary NO GROWTH AFTER 48 HOURS Resulted 11/01/17 15:00 Nasal Nares Influenza Types A,B Antigen (MARY) - Final Complete Laboratory Tests 11/03/17 04:40: White Blood Count 4.8, Red Blood Count 3.50L, Hemoglobin 10.2L, Hematocrit 31.2L , Mean Corpuscular Volume 89, Mean Corpuscular Hemoglobin 29.0, Mean Corpuscular Hemoglobin Concent 32.5, Red Cell Distribution Width 13.5, Platelet Count 222, Mean Platelet Volume 7.3, Neutrophils (%) (Auto) 66.0, Lymphocytes (% ) (Auto) 22.5, Monocytes (%) (Auto) 9.9, Eosinophils (%) (Auto) 0.6, Basophils ( %) (Auto) 0.9, Sodium Level 140, Potassium Level 3.4L, Chloride Level 103, Carbon Dioxide Level 29, Anion Gap 8, Blood Urea Nitrogen 67H, Creatinine 2.8H, Estimat Glomerular Filtration Rate , Glucose Level 98, Uric Acid 11.6H, Calcium Level 7.3L, Phosphorus Level 3.7, Magnesium Level 2.0, Total Bilirubin 0.4, Aspartate Amino Transf (AST/SGOT) 34, Alanine Aminotransferase (ALT/SGPT) 35, Alkaline Phosphatase 52, C-Reactive Protein, Quantitative 12.5H, Pro-B-Type Natriuretic Peptide 3603H, Total Protein 6.3L, Albumin 2.6L, Globulin 3.7, Albumin/Globulin Ratio 0.7L 11/03/17 10:55: Prothrombin Time 9.4, Prothromb Time International Ratio 0.9, Activated Partial Thromboplast Time 33 Current Medications Medications (Trade) Dose Ordered Sig/Luis Carlos Route PRN Reason Start Time Stop Time Status Last Admin Dose Admin Acetaminophen (Tylenol) 650 mg Q4H PRN ORAL Mild Pain (Pain Scale 1-3) 10/31/17 17:45 11/30/17 17:44 11/01/17 15:53 Acetaminophen (Tylenol) 650 mg Q4H PRN ORAL fever 10/31/17 17:45 11/30/17 17:44 Albuterol/ Ipratropium (Albuterol/ Ipratropium) 3 ml Q2H PRN HHN Shortness of Breath 10/31/17 17:45 11/05/17 17:44 11/01/17 02:26 Albuterol/ Ipratropium (Albuterol/ Ipratropium) 3 ml Q6HRT HHN 11/01/17 13:00 11/06/17 12:59 11/03/17 07:15 Amlodipine Besylate (Norvasc) 10 mg DAILY ORAL 11/02/17 09:00 11/30/17 17:59 11/03/17 09:23 Aspirin (Ecotrin) 81 mg DAILY ORAL 11/01/17 09:00 12/01/17 08:59 11/03/17 09:23 Azithromycin (Zithromax) 500 mg DAILY ORAL 11/01/17 12:15 11/08/17 12:14 11/03/17 09:24 Carvedilol (Coreg) 12.5 mg EVERY 12 HOURS ORAL 11/03/17 09:30 12/03/17 09:29 11/03/17 09:24 Ceftriaxone Sodium 1 gm/ Dextrose 55 ml @ 110 mls/hr Q24H IVPB 11/01/17 13:30 11/08/17 13:29 11/02/17 13:29 Clonidine HCl (Catapres) 0.1 mg Q4H PRN ORAL bp over 160 syst 1/7/18 09:45 12/01/17 09:44 11/03/17 02:02 Dextrose (Dextrose 50%) STAT PRN IV Hypoglycemia 10/31/17 17:45 11/30/17 17:44 Docusate Sodium (Colace) 100 mg TID ORAL 11/01/17 13:00 11/30/17 20:59 11/03/17 09:23 Furosemide (Lasix) 40 mg DAILY IV 11/03/17 09:00 11/30/17 20:59 11/03/17 09:24 Guaifenesin (Mucinex ER) 600 mg TWICE A DAY ORAL 11/01/17 12:15 12/01/17 12:14 11/03/17 09:24 Guaifenesin (Robitussin) 100 mg Q4H PRN ORAL For Cough 11/01/17 12:15 12/01/17 12:14 11/01/17 13:02 Heparin Sodium/ Dextrose 500 ml @ 29.889 mls/ hr adjust per protocol IV 11/03/17 12:30 12/03/17 12:29 Hydralazine HCl (Apresoline) 50 mg Q8HR ORAL 11/02/17 14:00 12/02/17 13:59 11/03/17 05:01 Isosorbide Mononitrate (Imdur) 60 mg ACBREAKFAST ORAL 11/01/17 06:30 12/01/17 06:29 11/03/17 05:02 Morphine Sulfate (Morphine Sulfate) 2 mg Q4H PRN IVP Moderate Pain (Pain Scale 4-6) 10/31/17 17:45 11/07/17 17:44 Morphine Sulfate (Morphine Sulfate) 4 mg Q4H PRN IVP Severe Pain (Pain Scale 7-10) 10/31/17 17:45 11/07/17 17:44 Ondansetron HCl (Zofran) 4 mg Q6H PRN IVP Nausea & Vomiting 10/31/17 17:45 11/30/17 17:44 Oseltamivir Phosphate (Tamiflu) 30 mg DAILY ORAL 11/02/17 17:00 11/07/17 16:59 11/03/17 09:24 Oxymetazoline HCl (Afrin Nasal [place]) 1 spray BID NASAL 11/02/17 09:00 12/02/17 08:59 11/03/17 09:24 Pantoprazole (Protonix) 40 mg DAILY ORAL 11/01/17 10:00 12/01/17 09:59 11/03/17 09:24 Polyethylene Glycol (Miralax) 17 gm HSPRN PRN ORAL Constipation 10/31/17 17:45 11/30/17 17:44 Potassium Chloride (K-Dur) 40 meq BID ORAL 11/03/17 10:00 12/03/17 09:59 11/03/17 09:23 Temazepam (Restoril) 15 mg HSPRN PRN ORAL Insomnia 11/03/17 00:30 11/10/17 00:29 11/03/17 00:30 IZABELA ROBLES Nov 03, 2017 12:38
--- NOTE | 2017-11-03 12:50 | Cardiology Report ---
APPROVED REPORT EXAM: Two-dimensional and M-mode echocardiogram with Doppler and color Doppler. INDICATION Congestive Heart Failure M-Mode DIMENSIONS IVSd1.3 (0.7-1.1cm)Left Atrium (MM)4.7 (1.6-4.0cm) LVDd4.5 (3.5-5.6cm)Aortic Root2.8 (2.0-3.7cm) PWd0.8 (0.7-1.1cm)Aortic Cusp Exc.1.7 (1.5-2.0cm) LVDs3.0 (2.5-4.0cm) PWs1.4 cm Technically difficult study due to poor acoustical windows. Normal left ventricular chamber size, systolic function and wall motion. Left ventricular ejection fraction estimated to be 60-65%. Mild left ventricular hypertrophy. Small anterior and posterior pericardial effusion. Right cardiac chamber sizes are within normal limits. Mild left atrial enlargement by 2D. Focal aortic valve sclerosis with adequate cusp excursion. Thickened mitral valve leaflets with normal excursion. Mild mitral annulus and aortic root calcification. Pulmonic valve not well visualized. Normal tricuspid valve structure. IVC is normal in size and collapsible with respiration. A color flow and spectral Doppler study was performed and revealed: No aortic regurgitation. No mitral regurgitation. Mitral diastolic velocities suggest reduced left ventricular relaxation c/w diastolic dysfunction grade 1. Mild tricuspid regurgitation. Tricuspid systolic velocities suggests peak right ventricular systolic pressure of 53 mmHg Consistent with moderate pulmonary hypertension. Pulmonic regurgitation present.
--- NOTE | 2017-11-03 12:50 | Diagnostic Imaging Report ---
Indication: Dyspnea Comparison: 11/02/2017 A single view chest radiograph was obtained. Findings: The heart is enlarged. The pulmonary vascularity is prominent but stable. IMPRESSION: Mild interstitial edema. No change from one day earlier
[2017-11-03] MEDS: Eliquis 2.5mg tablet ORAL SCH ×2 (12:57→17:39)
--- NOTE | 2017-11-03 13:59 | Diagnostic Imaging Report ---
Indication: Abdominal pain Technique: CT scan of the abdomen and pelvis utilizing automated exposure control without intravenous or oral contrast. Axial, sagittal and coronal images were obtained. CT dose: Total DLP 797 mGycm; CTDI vol 19.3 mGy Comparison: None Findings: Evaluation of the solid organs is limited without intravenous contrast material. There is consolidation in the left lower lobe with air bronchograms. Bilateral lower lobe atelectasis is noted. Small bilateral pleural effusions are present, left greater than right. The heart is enlarged. There is a small hiatal hernia. No CT dense gallstones are identified. The adrenal glands, spleen and pancreas are unremarkable. There is left renal atrophy. No hydronephrosis is identified. There is an apparent calcification within the left lobe of the liver which appears small. The small bowel loops are normal in caliber. There is no appendicitis. There is no free intraperitoneal fluid or air. Uterus is absent. Bladder is grossly unremarkable. Pelvic anterior abdominal varices are present. Atherosclerotic changes are noted. The IVC appears small with calcification. There is stranding of the subcutaneous soft tissues of the abdomen and pelvis. Impression: No mechanical obstruction. Small bilateral pleural effusions, left greater than right. Consolidation within the left lower lobe with air bronchograms could represent pneumonia or aspiration. Bilateral lower lobe atelectasis also noted. Small hiatal hernia. Left renal atrophy. Absent uterus. Varices of the anterior pelvic and lower abdominal wall. Small appearance of the IVC with calcification. Bilateral iliacs also appear small with calcification. Findings likely secondary to chronic sequela of thrombus. Clinical correlation recommended. Further evaluation recommended as indicated. Other findings as above. The CT scanner at [facility] is accredited by the [employer] and the scans are performed using protocols designed to limit radiation exposure to as low as reasonably achievable to attain images of sufficient resolution adequate for diagnostic evaluation.
--- NOTE | 2017-11-03 13:59 | Diagnostic Imaging Report ---
Indication: Cough Technique: XRAY Chest 1v Comparison: None Findings: Cardiac silhouette is prominent. Atherosclerotic changes are seen. There is central pulmonary vascular congestion and mild interstitial edema. Lung base atelectasis and small left pleural effusion are present. Impression: Cardiomegaly with pulmonary vascular congestion and mild interstitial edema. Lung base atelectasis and small pleural effusion.
[2017-11-03] MEDS: cefTRIAXone 1 GM in D5W 55 ML IVPB SCH (14:18)
--- NOTE | 2017-11-03 15:30 | Cardiac Electrophysiology PN ---
Assessment/Plan Assessment/Plan 1. Shortness of breath due to volume overload due to renal failure and congestive heart failure. The BNP is almost 10,000. Troponin is 0.029. Echocardiogram showed EF 55% 2. Accelerated hypertension. Increase Coreg to 12.5 bid. Continue hydralazine 50 bid, Imdur, Lasix 40 iv bid and Norvasc and p.r.n. clonidine 3. Renal failure 4. Bilateral LE DVT on Eliquis 2.5 bid. VQ scan Low probability for PE. IVC filter cancelled for renal failure DW RN DC tele. Subjective Subjective Feeling better with no chest pain or SOB. No arrhythmias on tele. IVC filter cancelled for Renal failure. Objective Last 24 Hour Vital Signs Date Time Temp Pulse Resp B/P (MAP) Pulse Ox O2 Delivery O2 Flow Rate FiO2 11/03/17 13:52 Room Air 11/03/17 13:52 Room Air 11/03/17 12:52 157/98 11/03/17 12:00 79 11/03/17 12:00 98.1 78 18 185/79 93 Nasal Cannula 2.0 11/03/17 09:24 82 152/77 11/03/17 09:23 82 152/77 11/03/17 08:00 97.7 82 18 152/77 93 Nasal Cannula 2.0 11/03/17 08:00 83 11/03/17 07:18 87 20 97 Room Air 21 11/03/17 07:17 Room Air 21 11/03/17 07:10 84 20 92 Room Air 21 11/03/17 07:09 92 Room Air 21 11/03/17 05:04 183/75 11/03/17 05:02 183/75 11/03/17 05:01 183/75 11/03/17 04:51 97.0 80 23 165/68 87 Room Air 11/03/17 04:00 81 11/03/17 02:02 174/112 11/03/17 02:01 92 174/112 11/03/17 02:00 88 20 95 Room Air 21 11/03/17 02:00 88 20 97 Room Air 21 11/03/17 00:00 98 11/03/17 00:00 96.8 83 20 162/77 93 Room Air 11/02/17 20:25 132/69 11/02/17 20:25 81 132/69 11/02/17 20:00 80 11/02/17 20:00 97.7 76 20 132/69 96 Room Air 11/02/17 19:39 89 20 96 Room Air 21 11/02/17 19:38 Room Air 21 11/02/17 19:38 82 20 94 Room Air 21 11/02/17 19:37 94 Room Air 21 11/02/17 16:00 88 11/02/17 16:00 97.9 83 18 154/78 100 Nasal Cannula 2.0 Intake and Output 11/02/17 11/03/17 19:00 07:00 Intake Total 420 ml Output Total 2200 ml 2000 ml Balance -1780 ml -2000 ml Intake Oral 420 ml Output Urine Total 2200 ml 2000 ml # Bowel Movements 1 Laboratory Tests Test 11/03/17 04:40 11/03/17 10:55 White Blood Count 4.8 K/UL (4.8-10.8) Red Blood Count 3.50 M/UL (4.20-5.40) L Hemoglobin 10.2 G/DL (12.0-16.0) L Hematocrit 31.2 % (37.0-47.0) L Mean Corpuscular Volume 89 FL (80-99) Mean Corpuscular Hemoglobin 29.0 PG (27.0-31.0) Mean Corpuscular Hemoglobin Concent 32.5 G/DL (32.0-36.0) Red Cell Distribution Width 13.5 % (11.6-14.8) Platelet Count 222 K/UL (150-450) Mean Platelet Volume 7.3 FL (6.5-10.1) Neutrophils (%) (Auto) 66.0 % (45.0-75.0) Lymphocytes (%) (Auto) 22.5 % (20.0-45.0) Monocytes (%) (Auto) 9.9 % (1.0-10.0) Eosinophils (%) (Auto) 0.6 % (0.0-3.0) Basophils (%) (Auto) 0.9 % (0.0-2.0) Sodium Level 140 MMOL/L (136-145) Potassium Level 3.4 MMOL/L (3.5-5.1) L Chloride Level 103 MMOL/L (98-107) Carbon Dioxide Level 29 MMOL/L (21-32) Anion Gap 8 mmol/L (5-15) Blood Urea Nitrogen 67 mg/dL (7-18) H Creatinine 2.8 MG/DL (0.55-1.30) H Estimat Glomerular Filtration Rate mL/min (>60) Glucose Level 98 MG/DL (74-106) Uric Acid 11.6 MG/DL (2.6-7.2) H Calcium Level 7.3 MG/DL (8.5-10.1) L Phosphorus Level 3.7 MG/DL (2.5-4.9) Magnesium Level 2.0 MG/DL (1.8-2.4) Total Bilirubin 0.4 MG/DL (0.2-1.0) Aspartate Amino Transf (AST/SGOT) 34 U/L (15-37) Alanine Aminotransferase (ALT/SGPT) 35 U/L (12-78) Alkaline Phosphatase 52 U/L (46-116) C-Reactive Protein, Quantitative 12.5 mg/dL (0.00-0.90) H Pro-B-Type Natriuretic Peptide 3603 pg/mL (0-125) H Total Protein 6.3 G/DL (6.4-8.2) L Albumin 2.6 G/DL (3.4-5.0) L Globulin 3.7 g/dL Albumin/Globulin Ratio 0.7 (1.0-2.7) L Prothrombin Time 9.4 SEC (9.30-11.50) Prothromb Time International Ratio 0.9 (0.9-1.1) Activated Partial Thromboplast Time 33 SEC (23-33) Microbiology Date/Time Source Procedure Growth Status 10/31/17 18:15 Blood Blood Culture - Preliminary NO GROWTH AFTER 48 HOURS Resulted 10/31/17 18:05 Blood Blood Culture - Preliminary NO GROWTH AFTER 48 HOURS Resulted 11/01/17 15:00 Nasal Nares Influenza Types A,B Antigen (MARY) - Final Complete Objective HEAD AND NECK: Shows no JVD. LUNGS: Decreased breath sounds. CARDIOVASCULAR: Regular S1 and S2 with no gallop or murmur. ABDOMEN: Soft. EXTREMITIES: A 1+ pitting edema. ALEJANDRA GUTIERREZ Nov 03, 2017 15:30
--- NOTE | 2017-11-03 19:06 | General Progress Note ---
Assessment/Plan Problem List: (1) Acute on chronic diastolic (congestive) heart failure ICD Codes: I50.33 - Acute on chronic diastolic (congestive) heart failure SNOMED: 02653321, 137411822 (2) Hypertensive urgency ICD Codes: I16.0 - Hypertensive urgency SNOMED: 776044352 (3) MOLLY on CKD (4) Sepsis ICD Codes: A41.9 - Sepsis, unspecified organism SNOMED: 30547830 (5) CAP (community acquired pneumonia) Assessment & Plan: Left lower lobe consolidation on CT ICD Codes: J18.9 - Pneumonia, unspecified organism SNOMED: 439231750 (6) Hypertensive heart disease ICD Codes: I11.9 - Hypertensive heart disease without heart failure SNOMED: 16871023 (7) Cardiorenal syndrome ICD Codes: I13.10 - Hypertensive heart and chronic kidney disease without heart failure, with stage 1 through stage 4 chronic kidney disease, or unspecified chronic kidney disease SNOMED: 143196522 (8) NSTEMI (non-ST elevated myocardial infarction) ICD Codes: I21.4 - Non-ST elevation (NSTEMI) myocardial infarction SNOMED: 049498292 (9) Abdominal pain Assessment & Plan: possibly 2/2 underlying left lower lobe pneumonia ICD Codes: R10.9 - Unspecified abdominal pain SNOMED: 32933632 (10) Acute bilateral deep vein thrombosis (DVT) of femoral veins ICD Codes: I82.413 - Acute embolism and thrombosis of femoral vein, bilateral SNOMED: 213957976921469 Status: stable Assessment/Plan Trend trop/EKG--peaked at 0.063 F/u TTE--EF wnl, diastolic dysfcn, LVH Cardiology consulted, appreciate rec's BP control: cont imdur 60mg qAM, amlodipine 10mg daily, hydralazine 50mg TID,c oreg 6.25mg BID Diurese w/ lasix 40mg IV daily, I/O goal -1 to 2L Strict I/O's, daily weights Cont box for strict I/Os Monitor CXR Trend lytes and replete Trend SCr--downtrending today Change to eliquis for acute DVT per heme/onc D/c heparin gtt F/u VQ scan--low probability for PE Heme/onc consulted Pulmonology consult Empiric ceftriaxone + azithro for possible CAP Empiric tamiflu Check for influenza A & B IgM Monitor lytes and replete Monitor SC closely F/u BLE venous duplex Renal consulted Check renal U/S--small L kidney F/u CT a/p--shows LLL consolidation Pain control, bowel regimen Supportive care PT eval Home health ordered DVT Prophylaxis: SCD, Eliquis Code Status: Full Hospital Classification Declaration: Based on this initial evaluation, and depending on the patient's clinical course, I anticipate that this patient will require hospitalization for 1-2 days for hypertensive urgency, CHF, MOLLY, PNA and close respiratory/hemodynamic monitoring. Disposition: Once the patient is stable to leave the hospital, I anticipate the patient will likely be discharged to the following environment: home with HH vs SNF Discussed with patient/family, nursing staff, SW/CM, cardiology regarding clinical status, treatment course, and disposition planning. D/w cardiology re BP control. D/w renal re MOLLY mgmt. D/w pulm and heme/onc re anticoagulation Time of note may not reflect time of encounter. Subjective Date patient seen: Nov 03, 2017 Time patient seen: 15:00 ROS Limited/Unobtainable: No Constitutional: Reports: no symptoms HEENT: Reports: no symptoms Cardiovascular: Reports: edema Respiratory: Reports: cough, orthopnea, shortness of breath, SOB with excertion Gastrointestinal/Abdominal: Reports: no symptoms Genitourinary: Reports: no symptoms Neurologic/Psychiatric: Reports: no symptoms Endocrine: Reports: no symptoms Hematologic/Lymphatic: Reports: no symptoms Allergies: Coded Allergies: PENICILLINS (Verified Allergy, Unknown, 10/31/17) Subjective No acute o/n events Diuresing well BP improved Had epistaxis and bleeding from IV site yesterday, so heparin gtt held Pt feeling better. SOB improved. Cough still persistent but slowly improving. Abd pain resolved. LE swelling slightly better. D/w family at bedside Objective Last 24 Hour Vital Signs Date Time Temp Pulse Resp B/P (MAP) Pulse Ox O2 Delivery O2 Flow Rate FiO2 11/03/17 15:56 98.1 76 18 148/87 93 Nasal Cannula 2.0 11/03/17 13:52 Room Air 11/03/17 13:52 Room Air 11/03/17 12:52 157/98 11/03/17 12:00 79 11/03/17 12:00 98.1 78 18 185/79 93 Nasal Cannula 2.0 11/03/17 09:24 82 152/77 11/03/17 09:23 82 152/77 11/03/17 08:00 97.7 82 18 152/77 93 Nasal Cannula 2.0 11/03/17 08:00 83 11/03/17 07:18 87 20 97 Room Air 21 11/03/17 07:17 Room Air 21 11/03/17 07:10 84 20 92 Room Air 21 11/03/17 07:09 92 Room Air 21 11/03/17 05:04 183/75 11/03/17 05:02 183/75 11/03/17 05:01 183/75 11/03/17 04:51 97.0 80 23 165/68 87 Room Air 11/03/17 04:00 81 11/03/17 02:02 174/112 11/03/17 02:01 92 174/112 11/03/17 02:00 88 20 95 Room Air 21 11/03/17 02:00 88 20 97 Room Air 21 11/03/17 00:00 98 11/03/17 00:00 96.8 83 20 162/77 93 Room Air 11/02/17 20:25 132/69 11/02/17 20:25 81 132/69 11/02/17 20:00 80 11/02/17 20:00 97.7 76 20 132/69 96 Room Air 11/02/17 19:39 89 20 96 Room Air 21 11/02/17 19:38 Room Air 21 11/02/17 19:38 82 20 94 Room Air 21 11/02/17 19:37 94 Room Air 21 Intake and Output 11/02/17 11/03/17 19:00 07:00 Intake Total 420 ml Output Total 2200 ml 2000 ml Balance -1780 ml -2000 ml Intake Oral 420 ml Output Urine Total 2200 ml 2000 ml # Bowel Movements 1 Laboratory Tests 11/03/17 04:40: White Blood Count 4.8, Red Blood Count 3.50L, Hemoglobin 10.2L, Hematocrit 31.2L , Mean Corpuscular Volume 89, Mean Corpuscular Hemoglobin 29.0, Mean Corpuscular Hemoglobin Concent 32.5, Red Cell Distribution Width 13.5, Platelet Count 222, Mean Platelet Volume 7.3, Neutrophils (%) (Auto) 66.0, Lymphocytes (% ) (Auto) 22.5, Monocytes (%) (Auto) 9.9, Eosinophils (%) (Auto) 0.6, Basophils ( %) (Auto) 0.9, Sodium Level 140, Potassium Level 3.4L, Chloride Level 103, Carbon Dioxide Level 29, Anion Gap 8, Blood Urea Nitrogen 67H, Creatinine 2.8H, Estimat Glomerular Filtration Rate , Glucose Level 98, Uric Acid 11.6H, Calcium Level 7.3L, Phosphorus Level 3.7, Magnesium Level 2.0, Total Bilirubin 0.4, Aspartate Amino Transf (AST/SGOT) 34, Alanine Aminotransferase (ALT/SGPT) 35, Alkaline Phosphatase 52, C-Reactive Protein, Quantitative 12.5H, Pro-B-Type Natriuretic Peptide 3603H, Total Protein 6.3L, Albumin 2.6L, Globulin 3.7, Albumin/Globulin Ratio 0.7L 11/03/17 10:55: Prothrombin Time 9.4, Prothromb Time International Ratio 0.9, Activated Partial Thromboplast Time 33 Height (Feet): 5 Height (Inches): 3.00 Weight (Pounds): 173 Objective General: alert, cooperative, no distress, appears stated age Head: normocephalic, without obvious abnormality, atraumatic Eyes: conjunctivae/corneas clear. PERRL, EOM's intact Throat: lips, mucosa, and tongue normal. MMM Neck: supple, symmetrical, trachea midline, and +JVD Lungs: +crackles b/l Heart: regular rate and rhythm, S1, S2 normal, no murmur, click, rub or gallop Abdomen: soft, +mild TTP of b/l lower quadrants, non-distended, bowel sounds normal Extremities: extremities normal, atraumatic, no cyanosis, 1-2+ pitting edema BLE to knees Pulses: 2+ and symmetric Skin: skin color, texture, turgor normal; no rashes or lesions Neurologic: grossly normal, no focal deficits Jax Hines M.D. Nov 03, 2017 19:05
--- NOTE | 2017-11-03 20:21 | General Progress Note ---
Assessment/Plan Assessment/Plan # Bilateral LE DVT on Eliquis 5 bid. VQ scan Low probability for PE. IVC filter cancelled for renal failure --> agree with cancelling ivc filter especially given current h/h stable and better to avoid device unless absolutely indicated --> eliqis dose increased to 5mg po bid # Anemia of chronic disease - w/u has been ordered (results pending --> hgb goal >7 # Coagulopathy and rectal bleeding --> due to heparin gtt, has been discontinued --> h/h stable # Shortness of breath due to volume overload due to renal failure and chf, nml ef 55% --> cardiology following # Accelerated hypertension, on bb, hydralazine, clonidine rn # Renal failure Subjective Constitutional: Denies: no symptoms, chills, diaphoresis, fever, malaise, weakness, other HEENT: Denies: no symptoms, eye pain, blurred vision, tearing, double vision, ear pain, ear discharge, nose pain, nose congestion, throat pain, throat swelling, mouth pain, mouth swelling, other Respiratory: Denies: no symptoms, cough, orthopnea, shortness of breath, SOB with excertion, SOB at rest, sputum, stridor, wheezing, other Gastrointestinal/Abdominal: Denies: no symptoms, abdomen distended, abdominal pain, black stools, tarry stools, blood in stool, constipated, diarrhea, difficulty swallowing, nausea, poor appetite, poor fluid intake, rectal bleeding , vomiting, other Genitourinary: Denies: no symptoms, burning, discharge, frequency, flank pain, hematuria, incontinence, pain, urgency, other Endocrine: Reports: no symptoms Hematologic/Lymphatic: Reports: no symptoms Allergies: Coded Allergies: PENICILLINS (Verified Allergy, Unknown, 10/31/17) Subjective nad, getting eliquis bid dosing Objective Last 24 Hour Vital Signs Date Time Temp Pulse Resp B/P (MAP) Pulse Ox O2 Delivery O2 Flow Rate FiO2 11/03/17 20:00 77 20 93 Room Air 21 11/03/17 20:00 Room Air 21 11/03/17 20:00 78 20 96 Room Air 21 11/03/17 19:59 94 Room Air 21 11/03/17 15:56 98.1 76 18 148/87 93 Nasal Cannula 2.0 11/03/17 13:52 Room Air 11/03/17 13:52 Room Air 11/03/17 12:52 157/98 11/03/17 12:00 79 11/03/17 12:00 98.1 78 18 185/79 93 Nasal Cannula 2.0 11/03/17 09:24 82 152/77 11/03/17 09:23 82 152/77 11/03/17 08:00 97.7 82 18 152/77 93 Nasal Cannula 2.0 11/03/17 08:00 83 11/03/17 07:18 87 20 97 Room Air 21 11/03/17 07:17 Room Air 21 11/03/17 07:10 84 20 92 Room Air 21 11/03/17 07:09 92 Room Air 21 11/03/17 05:04 183/75 11/03/17 05:02 183/75 11/03/17 05:01 183/75 11/03/17 04:51 97.0 80 23 165/68 87 Room Air 11/03/17 04:00 81 11/03/17 02:02 174/112 11/03/17 02:01 92 174/112 11/03/17 02:00 88 20 95 Room Air 21 11/03/17 02:00 88 20 97 Room Air 21 11/03/17 00:00 98 11/03/17 00:00 96.8 83 20 162/77 93 Room Air 11/02/17 20:25 132/69 11/02/17 20:25 81 132/69 Intake and Output 11/02/17 11/03/17 19:00 07:00 Intake Total 530 ml Output Total 2200 ml 2000 ml Balance -1670 ml -2000 ml Intake Oral 420 ml IV Total 110 ml Output Urine Total 2200 ml 2000 ml # Bowel Movements 1 Laboratory Tests 11/03/17 04:40: White Blood Count 4.8, Red Blood Count 3.50L, Hemoglobin 10.2L, Hematocrit 31.2L , Mean Corpuscular Volume 89, Mean Corpuscular Hemoglobin 29.0, Mean Corpuscular Hemoglobin Concent 32.5, Red Cell Distribution Width 13.5, Platelet Count 222, Mean Platelet Volume 7.3, Neutrophils (%) (Auto) 66.0, Lymphocytes (% ) (Auto) 22.5, Monocytes (%) (Auto) 9.9, Eosinophils (%) (Auto) 0.6, Basophils ( %) (Auto) 0.9, Sodium Level 140, Potassium Level 3.4L, Chloride Level 103, Carbon Dioxide Level 29, Anion Gap 8, Blood Urea Nitrogen 67H, Creatinine 2.8H, Estimat Glomerular Filtration Rate , Glucose Level 98, Uric Acid 11.6H, Calcium Level 7.3L, Phosphorus Level 3.7, Magnesium Level 2.0, Total Bilirubin 0.4, Aspartate Amino Transf (AST/SGOT) 34, Alanine Aminotransferase (ALT/SGPT) 35, Alkaline Phosphatase 52, C-Reactive Protein, Quantitative 12.5H, Pro-B-Type Natriuretic Peptide 3603H, Total Protein 6.3L, Albumin 2.6L, Globulin 3.7, Albumin/Globulin Ratio 0.7L 11/03/17 10:55: Prothrombin Time 9.4, Prothromb Time International Ratio 0.9, Activated Partial Thromboplast Time 33 Height (Feet): 5 Height (Inches): 3.00 Weight (Pounds): 173 General Appearance: alert EENT: TMs normal Neck: normal alignment Cardiovascular: regular rhythm Respiratory/Chest: normal breath sounds Abdomen: non tender Extremities: normal range of motion Edema: 1+ Leg (L), 1+ Leg (R) Edema: mild edema Neurologic: alert Skin: warm/dry Art Lees Nov 03, 2017 20:21
[2017-11-03 21:37] LABS: % IRON SATURATION 9 % (15-50); FERRITIN 403 NG/ML (8-388); IRON 16 ug/dL (50-175); LACTATE DEHYDROGENASE 369 U/L (81-234); TOTAL IRON BINDING CAPACITY 170 ug/dL (250-450)
[2017-11-03] MEDS ORDERED: Albuterol/Ipratropium 3ml neb HHN PRN (23:45)
[2017-11-04] MEDS ORDERED: guaiFENesin 100mg/5ml Liq ud ORAL PRN (00:15)
[2017-11-04] MEDS: Albuterol/Ipratropium 3ml neb HHN SCH ×5 (01:00→19:43)
[2017-11-04] MEDS ORDERED: Morphine Sulfate 4mg/ml Inj IVP PRN (01:45)
[2017-11-04] MEDS ORDERED: Morphine Sulfate 2mg/ml Inj IVP PRN (01:45)
[2017-11-04 04:00] VITALS: BP 180/91
[2017-11-04] MEDS: Imdur 30mg tab ORAL SCH (05:58)
[2017-11-04] MEDS ORDERED: HydrALAZINE 50mg tab ORAL SCH (06:00)
[2017-11-04 07:34] LABS: BASOPHILS % (AUTO) 0.9 % (0.0-2.0); EOSINOPHILS % (AUTO) 1.2 % (0.0-3.0); HEMATOCRIT 33.5 % (37.0-47.0); HEMOGLOBIN 10.8 G/DL (12.0-16.0); MEAN CORPUSCULAR VOLUME 89 FL (80-99); MONOCYTES % (AUTO) 10.4 % (1.0-10.0); NEUTROPHILS % (AUTO) 64.6 % (45.0-75.0); PLATELET COUNT 244 K/UL (150-450); RED BLOOD COUNT 3.76 M/UL (4.20-5.40); RED CELL DISTRIBUTION WIDTH 13.3 % (11.6-14.8); WHITE BLOOD COUNT 4.8 K/UL (4.8-10.8)
[2017-11-04 07:46] LABS: ALANINE AMINOTRANSFERASE 25 U/L (12-78); ALBUMIN 2.7 G/DL (3.4-5.0); ALBUMIN/GLOBULIN RATIO 0.7 (1.0-2.7); ALKALINE PHOSPHATASE 56 U/L (46-116); ANION GAP 11 mmol/L (5-15); ASPARTATE AMINO TRANSFERASE 33 U/L (15-37); BILIRUBIN,TOTAL 0.4 MG/DL (0.2-1.0); BLOOD UREA NITROGEN 54 mg/dL (7-18); CALCIUM 8.6 MG/DL (8.5-10.1); CARBON DIOXIDE 29 MMOL/L (21-32); CHLORIDE 103 MMOL/L (98-107); CREATININE 2.1 MG/DL (0.55-1.30); POTASSIUM 3.6 MMOL/L (3.5-5.1); SODIUM 143 MMOL/L (136-145)
[2017-11-04 08:00] VITALS: BP 178/91
--- NOTE | 2017-11-04 08:39 | Nephrology Progress Note ---
Assessment/Plan Problem List: (1) Renal failure (2) Hypertensive heart disease (3) Hypertensive urgency (4) MOLLY on CKD Assessment plan: status: HTN remains OOC Renal failure , Acute + Underlying chronic Cr 3.4 now down to 2.8 Hypertensive heart and kidney disease Hypertensive urgency CHF Plan Plan: Adjust BP meds- increase coreg and hydralazine, add Zestril, watch Cr K supplement Avoid Nephrotoxics Monitor I&O 2D Echo Left ventricular ejection fraction estimated to be 60-65%. Mild left ventricular hypertrophy. Diurese Kidney OSVALDO : Right kidney measures 11.3 cm. The left kidney is small and echogenic measuring 6.4 cm. monitor renal parameters Urine studies Subjective ROS Limited/Unobtainable: No Constitutional: Reports: malaise Objective Objective Last 24 Hour Vital Signs Date Time Temp Pulse Resp B/P (MAP) Pulse Ox O2 Delivery O2 Flow Rate FiO2 11/04/17 08:12 95 Room Air 21 11/04/17 08:12 Room Air 21 11/04/17 06:51 Room Air 11/04/17 06:51 95 Room Air 21 11/04/17 05:58 180/91 11/04/17 05:58 180/91 11/04/17 04:56 80 21 95 Room Air 21 11/04/17 04:47 21 11/04/17 04:46 78 21 93 Room Air 21 11/04/17 04:00 97.7 78 22 180/91 92 11/04/17 02:32 Room Air 11/04/17 02:31 Room Air 11/03/17 23:38 172/80 11/03/17 22:50 98.0 80 21 172/85 93 11/03/17 21:31 76 182/94 11/03/17 21:31 182/94 11/03/17 20:50 98.1 76 23 182/94 94 Room Air 11/03/17 20:00 77 20 93 Room Air 21 11/03/17 20:00 Room Air 21 11/03/17 20:00 78 20 96 Room Air 21 11/03/17 19:59 94 Room Air 21 11/03/17 15:56 98.1 76 18 148/87 93 Nasal Cannula 2.0 11/03/17 13:52 Room Air 11/03/17 13:52 Room Air 11/03/17 12:52 157/98 1/9/18 12:00 79 11/03/17 12:00 98.1 78 18 185/79 93 Nasal Cannula 2.0 11/03/17 09:24 82 152/77 11/03/17 09:23 82 152/77 Intake and Output 11/03/17 11/04/17 19:00 07:00 Intake Total 380 ml 400 ml Output Total 2100 ml 1625 ml Balance -1720 ml -1225 ml Intake Oral 270 ml 400 ml IV Total 110 ml Output Urine Total 2100 ml 1625 ml Laboratory Tests 11/03/17 10:55: Prothrombin Time 9.4, Prothromb Time International Ratio 0.9, Activated Partial Thromboplast Time 33, Fibrinogen 424H, Iron Level 16L, Total Iron Binding Capacity 170L, Percent Iron Saturation 9L, Unsaturated Iron Binding 154, Soluble Transferrin Receptor [Pending], Ferritin 403H, Lactate Dehydrogenase 369H, Folate 10.2, Thyroid Stimulating Hormone (TSH) 1.695 11/04/17 05:20: White Blood Count 4.8, Red Blood Count 3.76L, Hemoglobin 10.8L, Hematocrit 33.5L , Mean Corpuscular Volume 89, Mean Corpuscular Hemoglobin 28.7, Mean Corpuscular Hemoglobin Concent 32.2, Red Cell Distribution Width 13.3, Platelet Count 244, Mean Platelet Volume 7.1, Neutrophils (%) (Auto) 64.6, Lymphocytes (% ) (Auto) 23.0, Monocytes (%) (Auto) 10.4H, Eosinophils (%) (Auto) 1.2, Basophils (%) (Auto) 0.9, Sodium Level 143, Potassium Level 3.6, Chloride Level 103, Carbon Dioxide Level 29, Anion Gap 11, Blood Urea Nitrogen 54H, Creatinine 2.1H, Estimat Glomerular Filtration Rate , Glucose Level 103, Calcium Level 8.6 , Total Bilirubin 0.4, Aspartate Amino Transf (AST/SGOT) 33, Alanine Aminotransferase (ALT/SGPT) 25, Alkaline Phosphatase 56, Pro-B-Type Natriuretic Peptide 3524H, Total Protein 6.5, Albumin 2.7L, Globulin 3.8, Albumin/Globulin Ratio 0.7L Height (Feet): 5 Height (Inches): 3.00 Weight (Pounds): 173 General Appearance: no apparent distress Cardiovascular: normal rate Respiratory/Chest: decreased breath sounds Objective no signs of CHF VALENCIA MERCER Nov 04, 2017 08:39
[2017-11-04] MEDS ORDERED: Eliquis 2.5mg tablet ORAL SCH (09:00)
[2017-11-04] MEDS ORDERED: Aspirin EC 81mg tab ORAL SCH (09:00)
[2017-11-04] MEDS ORDERED: Carvedilol 6.25mg Tab ORAL SCH (09:00)
--- NOTE | 2017-11-04 09:42 | Consultation ---
DATE OF CONSULTATION: 11/02/2017 HEMATOLOGY/ONCOLOGY CONSULTATION CONSULTING PHYSICIAN: Art Lees M.D. REQUESTING PHYSICIAN: Lilly Titus M.D. REASON FOR CONSULTATION: Evaluation of DVT in the setting of bleed. IDENTIFYING DATA: Dear Dr. Titus and Dr. Camara: The patient is a pleasant 77-year-old female with past medical history significant for CAD, hypertension, chronic renal disease, at this time presents to the ER with complaints of 00:38 at night. 00:41 CT scan of chest showed consolidation with pneumonia noted, possible pulmonary edema. The patient also noted to have 00:55. AGUILA was completed, EF within normal limits. The patient has been diuresed. 01:22 has been reviewed, which shows nonocclusive thrombus in the common femoral vein in the right leg and acute nonocclusive thrombus in the common femoral and proximal superficial vein in the left leg. The patient currently is on aspirin, initially started on heparin drip, but currently has been cancelled. Given bleeding epistaxis at the IV line site, hematology service consulted. PAST MEDICAL HISTORY: Includes hypertension. ALLERGIES: Penicillin. FAMILY HISTORY: Noncontributory. SOCIAL HISTORY: Lives at home. No alcohol, tobacco, or illicit drug use. REVIEW OF SYSTEMS: A 12-point review of systems completed and negative besides as noted in the HPI. PHYSICAL EXAMINATION: GENERAL: No acute distress. VITAL SIGNS: Reviewed. PULMONARY: Decreased breath sounds CARDIOVASCULAR: Regular rate. No S3 or S4. ABDOMEN: Soft, nontender, and nondistended. EXTREMITIES: A 1+ edema. LABORATORY DATA: 03:26. INR 0.9. PTT was 150. BUN is 83 03:33. ASSESSMENT AND RECOMMENDATIONS: Bilateral lower extremity deep venous thrombosis . The patient had been bleeding, on heparin drip; therefore, discontinued. An IVC filter has been ordered. At this time, the patient continues to have bleeding, on heparin drip, okay to place a reversible filter. Otherwise, it would be reasonable to restart anticoagulation given hemoglobin above 10. We will discuss with the primary team. At this time, continue with IVC filter placement. ASSESSMENT: 1. Anemia of chronic disease including kidney disease. 2. Accelerated hypertension, being seen by Cardiology, Dr. Ospina. 3. Renal failure, elevated creatinine, continue to monitor. 4. Shortness of breath likely due to congestive heart failure, pending evaluation with Dr. Ospina, Cardiology service. I appreciate business management consultant care. Thank you for consultation. Art Lees M.D. DR: DOMINGO JOB#: [id number] CC:
[2017-11-04] MEDS: Carvedilol 25mg Tab ORAL SCH ×2 (09:45→20:50)
[2017-11-04] MEDS: Azithromycin 250mg tab ORAL SCH (09:46)
[2017-11-04] MEDS: Lisinopril 10mg tab ORAL SCH (09:47)
[2017-11-04] MEDS: Oxymetazoline 0.05% Na Spray 30ml NASAL SCH ×2 (09:48→17:53)
[2017-11-04] MEDS: Docusate 100mg cap ORAL SCH ×3 (09:58→17:53)
[2017-11-04] MEDS: guaiFENesin ER 600mg tab ORAL SCH ×2 (10:43→17:53)
[2017-11-04] MEDS: Eliquis 2.5mg tablet ORAL SCH ×2 (10:43→17:54)
--- NOTE | 2017-11-04 11:48 | Diagnostic Imaging Report ---
Indication: Dyspnea Comparison: 11/03/2017 A single view chest radiograph was obtained. Findings: Stable cardiomegaly. Persistent interstitial opacification/edema. Slight improved aeration in the left lower lung compared to one day prior. No large pleural effusion. No pneumothorax. IMPRESSION: Megaly and interstitial edema. Slight improved aeration of the left lower lung compared to one day prior.
[2017-11-04 12:00] VITALS: BP 164/89
[2017-11-04] MEDS: cefTRIAXone 1 GM in D5W 55 ML IVPB SCH (13:36)
[2017-11-04] MEDS: HydrALAZINE 50mg tab ORAL SCH ×2 (13:42→20:50)
--- NOTE | 2017-11-04 13:53 | General Progress Note ---
Assessment/Plan Problem List: (1) Acute on chronic diastolic (congestive) heart failure ICD Codes: I50.33 - Acute on chronic diastolic (congestive) heart failure SNOMED: 26383375, 251488445 (2) Hypertensive urgency ICD Codes: I16.0 - Hypertensive urgency SNOMED: 155982282 (3) MOLLY on CKD (4) Sepsis ICD Codes: A41.9 - Sepsis, unspecified organism SNOMED: 68910879 (5) CAP (community acquired pneumonia) Assessment & Plan: Left lower lobe consolidation on CT ICD Codes: J18.9 - Pneumonia, unspecified organism SNOMED: 191408937 (6) Hypertensive heart disease ICD Codes: I11.9 - Hypertensive heart disease without heart failure SNOMED: 22308503 (7) Cardiorenal syndrome ICD Codes: I13.10 - Hypertensive heart and chronic kidney disease without heart failure, with stage 1 through stage 4 chronic kidney disease, or unspecified chronic kidney disease SNOMED: 630389894 (8) NSTEMI (non-ST elevated myocardial infarction) ICD Codes: I21.4 - Non-ST elevation (NSTEMI) myocardial infarction SNOMED: 401963060 (9) Abdominal pain Assessment & Plan: possibly 2/2 underlying left lower lobe pneumonia ICD Codes: R10.9 - Unspecified abdominal pain SNOMED: 64138884 (10) Acute bilateral deep vein thrombosis (DVT) of femoral veins ICD Codes: I82.413 - Acute embolism and thrombosis of femoral vein, bilateral SNOMED: 265083646629815 Status: stable Assessment/Plan Trend trop/EKG--peaked at 0.063 F/u TTE--EF wnl, diastolic dysfcn, LVH Cardiology consulted, appreciate rec's BP control: cont imdur 60mg qAM, amlodipine 10mg daily, hydralazine 100mg TID, coreg 25mg BID (BP meds uptitrated per renal) Diurese w/ lasix 40mg IV daily, I/O goal -1 to 2L Strict I/O's, daily weights Cont box for strict I/Os Monitor CXR Trend lytes and replete Trend SCr--downtrending today Cont eliquis for acute DVT per heme/onc s/p heparin gtt F/u VQ scan--low probability for PE Heme/onc consulted Pulmonology consult Empiric ceftriaxone + azithro for possible CAP --will switch to levaquin to complete course on d/c Empiric tamiflu Check for influenza A & B IgM Monitor lytes and replete Monitor SC closely F/u BLE venous duplex Renal consulted Check renal U/S--small L kidney F/u CT a/p--shows LLL consolidation Pain control, bowel regimen Supportive care PT eval Home health ordered DC planning for tomorrow pending BP control DVT Prophylaxis: SCD, Eliquis Code Status: Full Hospital Classification Declaration: Based on this initial evaluation, and depending on the patient's clinical course, I anticipate that this patient will require hospitalization for 1-2 days for hypertensive urgency, CHF, MOLLY, PNA and close respiratory/hemodynamic monitoring. Disposition: Once the patient is stable to leave the hospital, I anticipate the patient will likely be discharged to the following environment: home with HH vs SNF (pt/family declines SNF) Discussed with patient/family, nursing staff, SW/CM, cardiology regarding clinical status, treatment course, and disposition planning. D/w cardiology re BP control. D/w renal reBP control. D/w pulm and heme/onc re anticoagulation Time of note may not reflect time of encounter. Subjective Date patient seen: Nov 04, 2017 Time patient seen: 13:53 ROS Limited/Unobtainable: No Constitutional: Reports: no symptoms HEENT: Reports: no symptoms Cardiovascular: Reports: no symptoms Respiratory: Reports: cough Gastrointestinal/Abdominal: Reports: no symptoms Genitourinary: Reports: no symptoms Neurologic/Psychiatric: Reports: no symptoms Endocrine: Reports: no symptoms Hematologic/Lymphatic: Reports: no symptoms Allergies: Coded Allergies: PENICILLINS (Verified Allergy, Unknown, 10/31/17) All Systems: reviewed and negative except above Subjective No acute o/n events Diuresing well BPs still running high. D/w renal who would like to adjust meds and observe w/ possible d/c tomorrow Bleeding resolved. Now on NOAC Pt feeling better. SOB improved. Cough still persistent but slowly improving. Abd pain resolved. LE swelling slightly better. D/w family at bedside Objective Last 24 Hour Vital Signs Date Time Temp Pulse Resp B/P (MAP) Pulse Ox O2 Delivery O2 Flow Rate FiO2 11/04/17 13:42 164/89 11/04/17 12:00 98.4 79 20 164/89 96 11/04/17 09:47 178/91 11/04/17 09:46 81 178/91 11/04/17 09:45 81 178/91 11/04/17 08:12 95 Room Air 21 11/04/17 08:12 Room Air 21 11/04/17 08:00 98.8 81 20 178/91 94 11/04/17 06:51 Room Air 11/04/17 06:51 95 Room Air 21 11/04/17 05:58 180/91 11/04/17 05:58 180/91 11/04/17 04:56 80 21 95 Room Air 21 11/04/17 04:47 21 11/04/17 04:46 78 21 93 Room Air 21 11/04/17 04:00 97.7 78 22 180/91 92 11/04/17 02:32 Room Air 11/04/17 02:31 Room Air 11/03/17 23:38 172/80 11/03/17 22:50 98.0 80 21 172/85 93 11/03/17 21:31 76 182/94 11/03/17 21:31 182/94 11/03/17 20:50 98.1 76 23 182/94 94 Room Air 11/03/17 20:00 77 20 93 Room Air 21 11/03/17 20:00 Room Air 21 11/03/17 20:00 78 20 96 Room Air 21 11/03/17 19:59 94 Room Air 21 11/03/17 15:56 98.1 76 18 148/87 93 Nasal Cannula 2.0 Intake and Output 11/03/17 11/04/17 19:00 07:00 Intake Total 380 ml 400 ml Output Total 2100 ml 1625 ml Balance -1720 ml -1225 ml Intake Oral 270 ml 400 ml IV Total 110 ml Output Urine Total 2100 ml 1625 ml Laboratory Tests 11/04/17 05:20: White Blood Count 4.8, Red Blood Count 3.76L, Hemoglobin 10.8L, Hematocrit 33.5L , Mean Corpuscular Volume 89, Mean Corpuscular Hemoglobin 28.7, Mean Corpuscular Hemoglobin Concent 32.2, Red Cell Distribution Width 13.3, Platelet Count 244, Mean Platelet Volume 7.1, Neutrophils (%) (Auto) 64.6, Lymphocytes (% ) (Auto) 23.0, Monocytes (%) (Auto) 10.4H, Eosinophils (%) (Auto) 1.2, Basophils (%) (Auto) 0.9, Sodium Level 143, Potassium Level 3.6, Chloride Level 103, Carbon Dioxide Level 29, Anion Gap 11, Blood Urea Nitrogen 54H, Creatinine 2.1H, Estimat Glomerular Filtration Rate , Glucose Level 103, Calcium Level 8.6 , Total Bilirubin 0.4, Aspartate Amino Transf (AST/SGOT) 33, Alanine Aminotransferase (ALT/SGPT) 25, Alkaline Phosphatase 56, Pro-B-Type Natriuretic Peptide 3524H, Total Protein 6.5, Albumin 2.7L, Globulin 3.8, Albumin/Globulin Ratio 0.7L Height (Feet): 5 Height (Inches): 3.00 Weight (Pounds): 173 Objective General: alert, cooperative, no distress, appears stated age Head: normocephalic, without obvious abnormality, atraumatic Eyes: conjunctivae/corneas clear. PERRL, EOM's intact Throat: lips, mucosa, and tongue normal. MMM Neck: supple, symmetrical, trachea midline, and +JVD Lungs: +crackles b/l Heart: regular rate and rhythm, S1, S2 normal, no murmur, click, rub or gallop Abdomen: soft, +mild TTP of b/l lower quadrants, non-distended, bowel sounds normal Extremities: extremities normal, atraumatic, no cyanosis, 1-2+ pitting edema BLE to knees Pulses: 2+ and symmetric Skin: skin color, texture, turgor normal; no rashes or lesions Neurologic: grossly normal, no focal deficits Jax Hines M.D. Nov 04, 2017 13:53
[2017-11-04] MEDS ORDERED: NORVASC10 MG ORAL (15:35)
[2017-11-04] MEDS ORDERED: PROTONIX40 MG ORAL (15:35)
[2017-11-04] MEDS ORDERED: ASPIRIN EC81 MG ORAL (15:35)
[2017-11-04] MEDS ORDERED: ELIQUIS2.5 MG ORAL (15:35)
[2017-11-04] MEDS ORDERED: COREG25 MG ORAL (15:35)
[2017-11-04] MEDS ORDERED: GUAIFENESI100 MG/5 M ORAL (15:35)
[2017-11-04] MEDS ORDERED: ISOSORBIDE MONO60 M1 PO (15:35)
[2017-11-04] MEDS ORDERED: LISINOPRIL10 MG ORAL (15:35)
--- NOTE | 2017-11-04 15:41 | Pulmonology Progress Note ---
Assessment/Plan Problems: (1) Renal failure (2) Acute on chronic diastolic (congestive) heart failure (3) Congestive heart failure (4) Pneumonia (5) DVT (deep venous thrombosis) (6) Hypertensive heart disease Assessment/Plan renal funtion improving on Eliquis. adjusted dose I would continue Tamiflu for now med/surg clonidine for prn bp > 160 dc home with oral abx need close f/u Subjective Constitutional: Reports: no symptoms HEENT: Repors: no symptoms Respiratory: Reports: no symptoms Allergies: Coded Allergies: PENICILLINS (Verified Allergy, Unknown, 10/31/17) Objective Last 24 Hour Vital Signs Date Time Temp Pulse Resp B/P (MAP) Pulse Ox O2 Delivery O2 Flow Rate FiO2 11/04/17 13:42 164/89 11/04/17 13:10 75 21 95 Room Air 21 11/04/17 13:00 75 20 94 Room Air 21 11/04/17 12:00 98.4 79 20 164/89 96 11/04/17 09:47 178/91 11/04/17 09:46 81 178/91 11/04/17 09:45 81 178/91 11/04/17 08:12 95 Room Air 21 11/04/17 08:12 Room Air 21 11/04/17 08:00 98.8 81 20 178/91 94 11/04/17 06:51 Room Air 11/04/17 06:51 95 Room Air 21 11/04/17 05:58 180/91 11/04/17 05:58 180/91 11/04/17 04:56 80 21 95 Room Air 21 11/04/17 04:47 21 11/04/17 04:46 78 21 93 Room Air 21 11/04/17 04:00 97.7 78 22 180/91 92 11/04/17 02:32 Room Air 11/04/17 02:31 Room Air 11/03/17 23:38 172/80 11/03/17 22:50 98.0 80 21 172/85 93 11/03/17 21:31 76 182/94 11/03/17 21:31 182/94 11/03/17 20:50 98.1 76 23 182/94 94 Room Air 11/03/17 20:00 77 20 93 Room Air 21 11/03/17 20:00 Room Air 21 11/03/17 20:00 78 20 96 Room Air 21 11/03/17 19:59 94 Room Air 21 11/03/17 15:56 98.1 76 18 148/87 93 Nasal Cannula 2.0 Intake and Output 11/03/17 11/04/17 19:00 07:00 Intake Total 380 ml 400 ml Output Total 2100 ml 1625 ml Balance -1720 ml -1225 ml Intake Oral 270 ml 400 ml IV Total 110 ml Output Urine Total 2100 ml 1625 ml General Appearance: WD/WN HEENT: normocephalic, atraumatic Respiratory/Chest: chest wall non-tender, lungs clear Breasts: no masses Cardiovascular: normal peripheral pulses, normal rate Abdomen: normal bowel sounds, soft, non tender Extremities: no cyanosis Skin: no rash Neurologic/Psychiatric: welt insole channeler II-XII grossly normal Laboratory Tests 11/04/17 05:20: White Blood Count 4.8, Red Blood Count 3.76L, Hemoglobin 10.8L, Hematocrit 33.5L , Mean Corpuscular Volume 89, Mean Corpuscular Hemoglobin 28.7, Mean Corpuscular Hemoglobin Concent 32.2, Red Cell Distribution Width 13.3, Platelet Count 244, Mean Platelet Volume 7.1, Neutrophils (%) (Auto) 64.6, Lymphocytes (% ) (Auto) 23.0, Monocytes (%) (Auto) 10.4H, Eosinophils (%) (Auto) 1.2, Basophils (%) (Auto) 0.9, Sodium Level 143, Potassium Level 3.6, Chloride Level 103, Carbon Dioxide Level 29, Anion Gap 11, Blood Urea Nitrogen 54H, Creatinine 2.1H, Estimat Glomerular Filtration Rate , Glucose Level 103, Calcium Level 8.6 , Total Bilirubin 0.4, Aspartate Amino Transf (AST/SGOT) 33, Alanine Aminotransferase (ALT/SGPT) 25, Alkaline Phosphatase 56, Pro-B-Type Natriuretic Peptide 3524H, Total Protein 6.5, Albumin 2.7L, Globulin 3.8, Albumin/Globulin Ratio 0.7L Current Medications Medications (Trade) Dose Ordered Sig/Luis Carlos Route PRN Reason Start Time Stop Time Status Last Admin Dose Admin Acetaminophen (Tylenol) 650 mg Q4H PRN ORAL Mild Pain (Pain Scale 1-3) 11/04/17 01:45 11/30/17 17:44 Acetaminophen (Tylenol) 650 mg Q4H PRN ORAL fever 11/04/17 01:45 11/30/17 17:44 Albuterol/ Ipratropium (Albuterol/ Ipratropium) 3 ml Q2H PRN HHN Shortness of Breath 11/03/17 23:45 11/05/17 17:44 Albuterol/ Ipratropium (Albuterol/ Ipratropium) 3 ml Q6HRT HHN 11/04/17 01:00 11/06/17 12:59 11/04/17 13:00 Amlodipine Besylate (Norvasc) 10 mg DAILY ORAL 11/04/17 09:00 11/30/17 17:59 11/04/17 09:46 Apixaban (Eliquis) 5 mg BID ORAL 11/04/17 09:00 12/04/17 08:59 11/04/17 10:43 Aspirin (Ecotrin) 81 mg DAILY ORAL 11/04/17 09:00 12/01/17 08:59 11/04/17 09:47 Azithromycin (Zithromax) 500 mg DAILY ORAL 11/04/17 09:00 11/06/17 08:59 11/04/17 09:46 Carvedilol (Coreg) 25 mg EVERY 12 HOURS ORAL 11/04/17 09:00 12/04/17 08:59 11/04/17 09:45 Ceftriaxone Sodium 1 gm/ Dextrose 55 ml @ 110 mls/hr Q24H IVPB 11/04/17 13:30 11/08/17 13:29 11/04/17 13:36 Clonidine HCl (Catapres Tab) 0.1 mg Q4H PRN ORAL bp over 160 syst 11/04/17 01:45 12/01/17 09:44 11/03/17 23:38 Dextrose (Dextrose 50%) STAT PRN IV Hypoglycemia 11/04/17 17:45 11/30/17 17:44 Docusate Sodium (Colace) 100 mg TID ORAL 11/04/17 09:00 11/30/17 20:59 11/04/17 13:35 Furosemide (Lasix) 40 mg DAILY IV 11/04/17 09:00 11/30/17 20:59 11/04/17 09:48 Guaifenesin (Mucinex ER) 600 mg TWICE A DAY ORAL 11/04/17 09:00 12/01/17 12:14 11/04/17 10:43 Guaifenesin (Robitussin) 100 mg Q4H PRN ORAL For Cough 11/04/17 00:15 12/01/17 12:14 11/04/17 09:48 Hydralazine HCl (Apresoline) 100 mg Q8HR ORAL 11/04/17 14:00 12/04/17 13:59 11/04/17 13:42 Isosorbide Mononitrate (Imdur) 60 mg ACBREAKFAST ORAL 11/04/17 06:30 12/01/17 06:29 11/04/17 05:58 Lisinopril (Zestril) 10 mg DAILY ORAL 11/04/17 09:00 12/04/17 08:59 11/04/17 09:47 Morphine Sulfate (Morphine Sulfate) 2 mg Q4H PRN IVP Moderate Pain (Pain Scale 4-6) 11/04/17 01:45 11/07/17 17:44 Morphine Sulfate (Morphine Sulfate) 4 mg Q4H PRN IVP Severe Pain (Pain Scale 7-10) 11/04/17 01:45 11/07/17 17:44 Ondansetron HCl (Zofran) 4 mg Q6H PRN IVP Nausea & Vomiting 11/03/17 23:45 11/30/17 17:44 Oseltamivir Phosphate (Tamiflu) 30 mg DAILY ORAL 11/04/17 09:00 11/07/17 16:59 11/04/17 09:58 Oxymetazoline HCl (Afrin Nasal [place]) 1 spray BID NASAL 11/04/17 09:00 12/02/17 08:59 11/04/17 09:48 Pantoprazole (Protonix) 40 mg DAILY ORAL 11/04/17 09:00 12/01/17 09:59 11/04/17 09:45 Polyethylene Glycol (Miralax) 17 gm HSPRN PRN ORAL Constipation 11/04/17 17:45 11/30/17 17:44 Potassium Chloride (K-Dur) 40 meq BID ORAL 11/04/17 09:00 12/03/17 09:59 11/04/17 09:47 Temazepam (Restoril) 15 mg HSPRN PRN ORAL Insomnia 11/04/17 00:30 11/10/17 00:29 11/04/17 01:59 IZABELA ROBLES Nov 04, 2017 15:41
[2017-11-04] MEDS ORDERED: APRESOLINE50 MG ORAL (15:42)
[2017-11-04] MEDS ORDERED: FUROSEMIDE40 MG ORAL (15:45)
[2017-11-04] MEDS ORDERED: POTASSIUM CHLO20 ME1 ORAL (15:47)
[2017-11-04] MEDS ORDERED: LEVAQUIN750 MG ORAL (15:47)
[2017-11-04 16:00] VITALS: BP 157/67
--- NOTE | 2017-11-04 17:07 | Cardiac Electrophysiology PN ---
Assessment/Plan Assessment/Plan 1. Shortness of breath due to volume overload due to renal failure and congestive heart failure. The BNP is almost 10,000. Troponin is 0.029. Echocardiogram showed EF 55% 2. Accelerated hypertension. On Coreg 25 bid, hydralazine 100 tid, Imdur 60 daily, Lasix 40 iv daily and Norvasc 10 and p.r.n. clonidine Recommend Clonidine 0.1 mg patch weekly if BP still high in am. 3. Renal failure 4. Bilateral LE DVT on Eliquis 2.5 bid. VQ scan Low probability for PE. IVC filter cancelled for renal failure DW RN and Dr. Camara Subjective Subjective No chest pain or SOB. Had BP 180s earlier today Objective Last 24 Hour Vital Signs Date Time Temp Pulse Resp B/P (MAP) Pulse Ox O2 Delivery O2 Flow Rate FiO2 11/04/17 16:00 97.6 67 20 157/67 96 11/04/17 13:42 164/89 11/04/17 13:10 75 21 95 Room Air 21 11/04/17 13:00 75 20 94 Room Air 21 11/04/17 12:00 98.4 79 20 164/89 96 11/04/17 09:47 178/91 11/04/17 09:46 81 178/91 11/04/17 09:45 81 178/91 11/04/17 08:12 95 Room Air 21 11/04/17 08:12 Room Air 21 11/04/17 08:00 98.8 81 20 178/91 94 11/04/17 06:51 Room Air 11/04/17 06:51 95 Room Air 21 11/04/17 05:58 180/91 11/04/17 05:58 180/91 11/04/17 04:56 80 21 95 Room Air 21 11/04/17 04:47 21 11/04/17 04:46 78 21 93 Room Air 21 11/04/17 04:00 97.7 78 22 180/91 92 11/04/17 02:32 Room Air 11/04/17 02:31 Room Air 11/03/17 23:38 172/80 11/03/17 22:50 98.0 80 21 172/85 93 11/03/17 21:31 76 182/94 11/03/17 21:31 182/94 11/03/17 20:50 98.1 76 23 182/94 94 Room Air 11/03/17 20:00 77 20 93 Room Air 21 11/03/17 20:00 Room Air 21 11/03/17 20:00 78 20 96 Room Air 21 11/03/17 19:59 94 Room Air 21 Intake and Output 11/03/17 11/04/17 19:00 07:00 Intake Total 380 ml 400 ml Output Total 2100 ml 1625 ml Balance -1720 ml -1225 ml Intake Oral 270 ml 400 ml IV Total 110 ml Output Urine Total 2100 ml 1625 ml Laboratory Tests Test 11/04/17 05:20 White Blood Count 4.8 K/UL (4.8-10.8) Red Blood Count 3.76 M/UL (4.20-5.40) L Hemoglobin 10.8 G/DL (12.0-16.0) L Hematocrit 33.5 % (37.0-47.0) L Mean Corpuscular Volume 89 FL (80-99) Mean Corpuscular Hemoglobin 28.7 PG (27.0-31.0) Mean Corpuscular Hemoglobin Concent 32.2 G/DL (32.0-36.0) Red Cell Distribution Width 13.3 % (11.6-14.8) Platelet Count 244 K/UL (150-450) Mean Platelet Volume 7.1 FL (6.5-10.1) Neutrophils (%) (Auto) 64.6 % (45.0-75.0) Lymphocytes (%) (Auto) 23.0 % (20.0-45.0) Monocytes (%) (Auto) 10.4 % (1.0-10.0) H Eosinophils (%) (Auto) 1.2 % (0.0-3.0) Basophils (%) (Auto) 0.9 % (0.0-2.0) Sodium Level 143 MMOL/L (136-145) Potassium Level 3.6 MMOL/L (3.5-5.1) Chloride Level 103 MMOL/L (98-107) Carbon Dioxide Level 29 MMOL/L (21-32) Anion Gap 11 mmol/L (5-15) Blood Urea Nitrogen 54 mg/dL (7-18) H Creatinine 2.1 MG/DL (0.55-1.30) H Estimat Glomerular Filtration Rate mL/min (>60) Glucose Level 103 MG/DL (74-106) Calcium Level 8.6 MG/DL (8.5-10.1) Total Bilirubin 0.4 MG/DL (0.2-1.0) Aspartate Amino Transf (AST/SGOT) 33 U/L (15-37) Alanine Aminotransferase (ALT/SGPT) 25 U/L (12-78) Alkaline Phosphatase 56 U/L (46-116) Pro-B-Type Natriuretic Peptide 3524 pg/mL (0-125) H Total Protein 6.5 G/DL (6.4-8.2) Albumin 2.7 G/DL (3.4-5.0) L Globulin 3.8 g/dL Albumin/Globulin Ratio 0.7 (1.0-2.7) L Objective HEAD AND NECK: Shows no JVD. LUNGS: Decreased breath sounds. CARDIOVASCULAR: Regular S1 and S2 with no gallop or murmur. ABDOMEN: Soft. EXTREMITIES: A 1+ pitting edema. ALEJANDRA GUTIERREZ Nov 04, 2017 17:07
[2017-11-04] MEDS ORDERED: Miralax 17gm pkt ORAL PRN (17:45)
[2017-11-04 20:00] VITALS: BP 179/83
--- NOTE | 2017-11-04 23:24 | General Progress Note ---
Assessment/Plan Status: unchanged Assessment/Plan # Bilateral LE DVT on Eliquis 5 bid. VQ scan Low probability for PE. IVC filter cancelled for renal failure --> agree with cancelling ivc filter especially given current h/h stable and better to avoid device unless absolutely indicated --> eliqis dose increased to 5mg po bid --> Cont to monitor. # Anemia of chronic disease - w/u completed and reviewed. --> hgb goal >7 --> Blood transfusion not required today. # Coagulopathy and rectal bleeding --> due to heparin gtt, has been discontinued --> h/h stable # Shortness of breath due to volume overload due to renal failure and chf, nml ef 55% --> cardiology following # Accelerated hypertension, on bb, hydralazine, clonidine rn # Renal failure Subjective Date patient seen: Nov 04, 2017 Constitutional: Denies: no symptoms, chills, diaphoresis, fever, malaise, weakness, other HEENT: Denies: no symptoms, eye pain, blurred vision, tearing, double vision, ear pain, ear discharge, nose pain, nose congestion, throat pain, throat swelling, mouth pain, mouth swelling, other Cardiovascular: Denies: no symptoms, chest pain, edema, irregular heart rate, lightheadedness, palpitations, syncope, other Respiratory: Denies: no symptoms, cough, orthopnea, shortness of breath, SOB with excertion, SOB at rest, sputum, stridor, wheezing, other Gastrointestinal/Abdominal: Denies: no symptoms, abdomen distended, abdominal pain, black stools, tarry stools, blood in stool, constipated, diarrhea, difficulty swallowing, nausea, poor appetite, poor fluid intake, rectal bleeding , vomiting, other Genitourinary: Denies: no symptoms, burning, discharge, frequency, flank pain, hematuria, incontinence, pain, urgency, other Hematologic/Lymphatic: Reports: anemia Allergies: Coded Allergies: PENICILLINS (Verified Allergy, Unknown, 10/31/17) Subjective nad, getting eliquis bid dosing Objective Last 24 Hour Vital Signs Date Time Temp Pulse Resp B/P (MAP) Pulse Ox O2 Delivery O2 Flow Rate FiO2 11/04/17 20:50 179/83 11/04/17 20:50 72 179/83 11/04/17 19:48 69 20 98 Room Air 21 11/04/17 19:44 69 18 97 Room Air 21 11/04/17 19:44 Room Air 11/04/17 19:44 97 Room Air 21 11/04/17 16:00 97.6 67 20 157/67 96 11/04/17 13:42 164/89 11/04/17 13:10 75 21 95 Room Air 21 11/04/17 13:00 75 20 94 Room Air 21 11/04/17 12:00 98.4 79 20 164/89 96 11/04/17 09:47 178/91 11/04/17 09:46 81 178/91 11/04/17 09:45 81 178/91 11/04/17 08:12 95 Room Air 21 11/04/17 08:12 Room Air 21 11/04/17 08:00 98.8 81 20 178/91 94 11/04/17 06:51 Room Air 11/04/17 06:51 95 Room Air 21 11/04/17 05:58 180/91 11/04/17 05:58 180/91 11/04/17 04:56 80 21 95 Room Air 21 11/04/17 04:47 21 11/04/17 04:46 78 21 93 Room Air 21 11/04/17 04:00 97.7 78 22 180/91 92 11/04/17 02:32 Room Air 11/04/17 02:31 Room Air 11/03/17 23:38 172/80 Intake and Output 11/03/17 11/04/17 19:00 07:00 Intake Total 380 ml 400 ml Output Total 2100 ml 1625 ml Balance -1720 ml -1225 ml Intake Oral 270 ml 400 ml IV Total 110 ml Output Urine Total 2100 ml 1625 ml Laboratory Tests 11/04/17 05:20: White Blood Count 4.8, Red Blood Count 3.76L, Hemoglobin 10.8L, Hematocrit 33.5L , Mean Corpuscular Volume 89, Mean Corpuscular Hemoglobin 28.7, Mean Corpuscular Hemoglobin Concent 32.2, Red Cell Distribution Width 13.3, Platelet Count 244, Mean Platelet Volume 7.1, Neutrophils (%) (Auto) 64.6, Lymphocytes (% ) (Auto) 23.0, Monocytes (%) (Auto) 10.4H, Eosinophils (%) (Auto) 1.2, Basophils (%) (Auto) 0.9, Sodium Level 143, Potassium Level 3.6, Chloride Level 103, Carbon Dioxide Level 29, Anion Gap 11, Blood Urea Nitrogen 54H, Creatinine 2.1H, Estimat Glomerular Filtration Rate , Glucose Level 103, Calcium Level 8.6 , Total Bilirubin 0.4, Aspartate Amino Transf (AST/SGOT) 33, Alanine Aminotransferase (ALT/SGPT) 25, Alkaline Phosphatase 56, Pro-B-Type Natriuretic Peptide 3524H, Total Protein 6.5, Albumin 2.7L, Globulin 3.8, Albumin/Globulin Ratio 0.7L Height (Feet): 5 Height (Inches): 3.00 Weight (Pounds): 173 General Appearance: no apparent distress Cardiovascular: normal rate Respiratory/Chest: lungs clear Abdomen: non tender, soft Edema: mild edema Art Lees Nov 04, 2017 23:24
[2017-11-05] VITALS: BP 181/93
[2017-11-05] MEDS: Albuterol/Ipratropium 3ml neb HHN SCH ×3 (00:31→13:14)
[2017-11-05 04:00] VITALS: BP 189/89
[2017-11-05] MEDS: HydrALAZINE 50mg tab ORAL SCH ×2 (05:09→13:46)
[2017-11-05] MEDS: Imdur 30mg tab ORAL SCH (05:09)
[2017-11-05] MEDS ORDERED: Minoxidil 2.5mg tab ORAL PRN (07:30)
[2017-11-05 08:00] VITALS: BP 169/74
[2017-11-05] MEDS: guaiFENesin ER 600mg tab ORAL SCH (08:53)
[2017-11-05] MEDS: Oxymetazoline 0.05% Na Spray 30ml NASAL SCH (08:54)
[2017-11-05] MEDS: Docusate 100mg cap ORAL SCH ×2 (08:54→13:46)
[2017-11-05] MEDS: Eliquis 2.5mg tablet ORAL SCH (08:54)
[2017-11-05] MEDS: Azithromycin 250mg tab ORAL SCH (08:55)
[2017-11-05] MEDS: Carvedilol 25mg Tab ORAL SCH (08:55)
[2017-11-05] MEDS: Lisinopril 10mg tab ORAL SCH (09:01)
--- NOTE | 2017-11-05 09:31 | Nephrology Progress Note ---
Assessment/Plan Problem List: (1) Renal failure (2) Hypertensive heart disease (3) Hypertensive urgency (4) MOLLY on CKD Assessment status: HTN controlled on current regimen Renal failure , Acute + Underlying chronic Cr 3.4 now down to 2.8 Hypertensive heart and kidney disease Hypertensive urgency CHF Plan Plan: today's lab pending, watch Cr Adjust BP meds- done K supplement Avoid Nephrotoxics Monitor I&O 2D Echo Left ventricular ejection fraction estimated to be 60-65%. Mild left ventricular hypertrophy. Diurese Kidney OSVALDO : Right kidney measures 11.3 cm. The left kidney is small and echogenic measuring 6.4 cm. monitor renal parameters DC planning? OP fu Subjective ROS Limited/Unobtainable: No Objective Objective Last 24 Hour Vital Signs Date Time Temp Pulse Resp B/P (MAP) Pulse Ox O2 Delivery O2 Flow Rate FiO2 11/05/17 09:01 169/74 11/05/17 08:55 71 169/74 11/05/17 08:55 71 169/74 11/05/17 08:53 169/74 11/05/17 08:00 97.6 71 20 169/74 99 11/05/17 07:00 77 18 99 Room Air 21 11/05/17 06:50 75 18 97 Room Air 21 11/05/17 05:09 189/81 11/05/17 05:09 189/81 11/05/17 04:00 97.4 71 25 189/89 96 11/05/17 01:52 181/93 11/05/17 00:32 Room Air 11/05/17 00:31 Room Air 21 11/05/17 00:00 97.3 74 26 181/93 94 11/04/17 20:50 179/83 11/04/17 20:50 72 179/83 11/04/17 20:00 97.9 72 21 179/83 95 11/04/17 19:48 69 20 98 Room Air 21 11/04/17 19:44 69 18 97 Room Air 21 11/04/17 19:44 Room Air 11/04/17 19:44 97 Room Air 21 11/04/17 16:00 97.6 67 20 157/67 96 11/04/17 13:42 164/89 11/04/17 13:10 75 21 95 Room Air 21 11/04/17 13:00 75 20 94 Room Air 21 11/04/17 12:00 98.4 79 20 164/89 96 11/04/17 09:47 178/91 11/04/17 09:46 81 178/91 11/04/17 09:45 81 178/91 Intake and Output 11/04/17 11/05/17 19:00 07:00 Intake Total 850 ml 240 ml Balance 850 ml 240 ml Intake Oral 850 ml 240 ml # Voids 3 2 Current Medications Medications (Trade) Dose Ordered Sig/Luis Carlos Route PRN Reason Start Time Stop Time Status Last Admin Dose Admin Acetaminophen (Tylenol) 650 mg Q4H PRN ORAL Mild Pain (Pain Scale 1-3) 11/04/17 01:45 11/30/17 17:44 Acetaminophen (Tylenol) 650 mg Q4H PRN ORAL fever 11/04/17 01:45 11/30/17 17:44 Albuterol/ Ipratropium (Albuterol/ Ipratropium) 3 ml Q2H PRN HHN Shortness of Breath 11/03/17 23:45 11/05/17 17:44 Albuterol/ Ipratropium (Albuterol/ Ipratropium) 3 ml Q6HRT HHN 11/04/17 01:00 11/06/17 12:59 11/05/17 06:50 Amlodipine Besylate (Norvasc) 10 mg DAILY ORAL 11/04/17 09:00 11/30/17 17:59 11/05/17 08:55 Apixaban (Eliquis) 5 mg BID ORAL 11/04/17 09:00 12/04/17 08:59 11/05/17 08:54 Azithromycin (Zithromax) 500 mg DAILY ORAL 11/04/17 09:00 11/06/17 08:59 11/05/17 08:55 Carvedilol (Coreg) 25 mg EVERY 12 HOURS ORAL 11/04/17 09:00 12/04/17 08:59 11/05/17 08:55 Ceftriaxone Sodium 1 gm/ Dextrose 55 ml @ 110 mls/hr Q24H IVPB 11/04/17 13:30 11/08/17 13:29 11/04/17 13:36 Clonidine HCl (Catapres Tab) 0.1 mg EVERY 8 HOURS ORAL 11/05/17 14:00 12/05/17 13:59 Dextrose (Dextrose 50%) STAT PRN IV Hypoglycemia 11/04/17 17:45 11/30/17 17:44 Docusate Sodium (Colace) 100 mg TID ORAL 11/04/17 09:00 11/30/17 20:59 11/05/17 08:54 Furosemide (Lasix) 40 mg DAILY IV 11/04/17 09:00 11/30/17 20:59 11/05/17 08:54 Guaifenesin (Mucinex ER) 600 mg TWICE A DAY ORAL 11/04/17 09:00 12/01/17 12:14 11/05/17 08:53 Guaifenesin (Robitussin) 100 mg Q4H PRN ORAL For Cough 11/04/17 00:15 12/01/17 12:14 11/04/17 09:48 Hydralazine HCl (Apresoline) 100 mg Q8HR ORAL 11/04/17 14:00 12/04/17 13:59 11/05/17 05:09 Isosorbide Mononitrate (Imdur) 60 mg ACBREAKFAST ORAL 11/04/17 06:30 12/01/17 06:29 11/05/17 05:09 Lisinopril (Zestril) 10 mg DAILY ORAL 11/04/17 09:00 12/04/17 08:59 11/05/17 09:01 Minoxidil (Loniten) 2.5 mg Q4H PRN ORAL BP over 160syst 11/05/17 07:30 12/05/17 07:29 Morphine Sulfate (Morphine Sulfate) 2 mg Q4H PRN IVP Moderate Pain (Pain Scale 4-6) 11/04/17 01:45 11/07/17 17:44 Morphine Sulfate (Morphine Sulfate) 4 mg Q4H PRN IVP Severe Pain (Pain Scale 7-10) 11/04/17 01:45 11/07/17 17:44 Ondansetron HCl (Zofran) 4 mg Q6H PRN IVP Nausea & Vomiting 11/03/17 23:45 11/30/17 17:44 Oseltamivir Phosphate (Tamiflu) 30 mg DAILY ORAL 11/04/17 09:00 11/07/17 16:59 11/05/17 08:55 Oxymetazoline HCl (Afrin Nasal [place]) 1 spray BID NASAL 11/04/17 09:00 12/02/17 08:59 11/05/17 08:54 Pantoprazole (Protonix) 40 mg DAILY ORAL 11/04/17 09:00 12/01/17 09:59 11/05/17 08:54 Polyethylene Glycol (Miralax) 17 gm HSPRN PRN ORAL Constipation 11/04/17 17:45 11/30/17 17:44 Potassium Chloride (K-Dur) 40 meq BID ORAL 11/04/17 09:00 12/03/17 09:59 11/05/17 08:54 Temazepam (Restoril) 15 mg HSPRN PRN ORAL Insomnia 11/04/17 00:30 11/10/17 00:29 11/04/17 01:59 Laboratory Tests 11/05/17 08:45: Sodium Level [Pending], Potassium Level [Pending], Chloride Level [Pending], Carbon Dioxide Level [Pending], Blood Urea Nitrogen [Pending], Creatinine [ Pending], Estimat Glomerular Filtration Rate [Pending], Glucose Level [Pending] , Calcium Level [Pending], Total Bilirubin [Pending], Aspartate Amino Transf ( AST/SGOT) [Pending], Alanine Aminotransferase (ALT/SGPT) [Pending], Alkaline Phosphatase [Pending], Total Protein [Pending], Albumin [Pending], Globulin [ Pending] Height (Feet): 5 Height (Inches): 3.00 Weight (Pounds): 173 General Appearance: no apparent distress Cardiovascular: normal rate Respiratory/Chest: decreased breath sounds Abdomen: soft Objective no signs of CHF VALENCIA MERCER Nov 05, 2017 09:31
[2017-11-05 09:45] LABS: ANION GAP 8 mmol/L (5-15); BLOOD UREA NITROGEN 52 mg/dL (7-18); CALCIUM 8.7 MG/DL (8.5-10.1); CARBON DIOXIDE 28 MMOL/L (21-32); CHLORIDE 105 MMOL/L (98-107); CREATININE 2.4 MG/DL (0.55-1.30); POTASSIUM 4.3 MMOL/L (3.5-5.1); SODIUM 141 MMOL/L (136-145)
[2017-11-05 09:49] LABS: ALANINE AMINOTRANSFERASE 32 U/L (12-78); ALBUMIN 2.8 G/DL (3.4-5.0); ALBUMIN/GLOBULIN RATIO 0.7 (1.0-2.7); ALKALINE PHOSPHATASE 62 U/L (46-116); ASPARTATE AMINO TRANSFERASE 45 U/L (15-37); BILIRUBIN,TOTAL 0.5 MG/DL (0.2-1.0)
[2017-11-05] MEDS ORDERED: CLONIDINE0.1 MG ORAL (11:03)
[2017-11-05 12:01] VITALS: BP 149/71
--- NOTE | 2017-11-05 12:04 | Discharge Instructions ---
Discharge Instructions Discharge Instructions Follow up with: Primary care doctor in 5-7 days for repeat labs and BP check Call MD/Return to Hospital if: fevers, chest pain, SOB Services at Discharge: home health services Diet: 2 GM sodium (low sodium), low cholesterol Resume Normal Activity?: Yes Activity: resume normal activities Follow Up Orders Follow-up with kidney specialist dr. Carr: Follow-up with career placement specialist dr. Ospina: For Congestive Heart Failure Reminder Report to your physician any weight gain of 5 pounds or more in one week. Jax Hines M.D. Nov 05, 2017 12:04
[2017-11-05] MEDS: cefTRIAXone 1 GM in D5W 55 ML IVPB SCH (13:46)
[2017-11-05 16:00] VITALS: BP 155/77
[2017-11-05] MEDS ORDERED: NS 275ml ONE (16:31)
[2017-11-05] MEDS ORDERED: Tubing Blood Filter IV ONE (16:31)
[2017-11-05] MEDS ORDERED: Tubing IV Secondary IV ONE ×2 (16:31)
--- NOTE | 2017-11-05 16:34 | Cardiac Electrophysiology PN ---
Assessment/Plan Assessment/Plan 1. Shortness of breath due to volume overload due to renal failure and congestive heart failure. The BNP is almost 10,000. Troponin is 0.029. Echocardiogram showed EF 55% 2. Accelerated hypertension. Continue Coreg 25 bid, hydralazine 100 tid, Imdur 60 daily, Lasix 40 po daily and Norvasc 10 3. Renal failure 4. Bilateral LE DVT on Eliquis 2.5 bid. VQ scan Low probability for PE. IVC filter cancelled for renal failure DW RN and Son Follow up with me in 1-2 weeks Subjective Subjective No chest pain or SOB. Getting ready for discharge. Son at bedside. Objective Last 24 Hour Vital Signs Date Time Temp Pulse Resp B/P (MAP) Pulse Ox O2 Delivery O2 Flow Rate FiO2 11/05/17 16:00 97.4 67 18 155/77 99 11/05/17 13:50 149/71 11/05/17 13:46 149/71 11/05/17 13:24 70 18 98 Room Air 21 11/05/17 13:14 66 16 98 Room Air 21 11/05/17 12:01 97.4 65 19 149/71 96 11/05/17 09:01 169/74 11/05/17 08:55 71 169/74 11/05/17 08:55 71 169/74 11/05/17 08:53 169/74 11/05/17 08:00 97.6 71 20 169/74 99 11/05/17 07:00 77 18 99 Room Air 21 11/05/17 06:50 75 18 97 Room Air 21 11/05/17 05:09 189/81 11/05/17 05:09 189/81 11/05/17 04:00 97.4 71 25 189/89 96 11/05/17 01:52 181/93 11/05/17 00:32 Room Air 11/05/17 00:31 Room Air 21 11/05/17 00:00 97.3 74 26 181/93 94 11/04/17 20:50 179/83 11/04/17 20:50 72 179/83 11/04/17 20:00 97.9 72 21 179/83 95 11/04/17 19:48 69 20 98 Room Air 21 11/04/17 19:44 69 18 97 Room Air 21 11/04/17 19:44 Room Air 11/04/17 19:44 97 Room Air 21 Intake and Output 11/04/17 11/05/17 19:00 07:00 Intake Total 850 ml 240 ml Balance 850 ml 240 ml Intake Oral 850 ml 240 ml # Voids 3 2 Laboratory Tests Test 11/05/17 08:45 Sodium Level 141 MMOL/L (136-145) Potassium Level 4.3 MMOL/L (3.5-5.1) Chloride Level 105 MMOL/L (98-107) Carbon Dioxide Level 28 MMOL/L (21-32) Anion Gap 8 mmol/L (5-15) Blood Urea Nitrogen 52 mg/dL (7-18) H Creatinine 2.4 MG/DL (0.55-1.30) H Estimat Glomerular Filtration Rate mL/min (>60) Glucose Level 136 MG/DL (74-106) H Calcium Level 8.7 MG/DL (8.5-10.1) Total Bilirubin 0.5 MG/DL (0.2-1.0) Aspartate Amino Transf (AST/SGOT) 45 U/L (15-37) H Alanine Aminotransferase (ALT/SGPT) 32 U/L (12-78) Alkaline Phosphatase 62 U/L (46-116) Total Protein 6.8 G/DL (6.4-8.2) Albumin 2.8 G/DL (3.4-5.0) L Globulin 4.0 g/dL Albumin/Globulin Ratio 0.7 (1.0-2.7) L Objective HEAD AND NECK: Shows no JVD. LUNGS: Decreased breath sounds. CARDIOVASCULAR: Regular S1 and S2 with no gallop or murmur. ABDOMEN: Soft. EXTREMITIES: A 1+ pitting edema. ALEJANDRA GUTIERREZ Nov 05, 2017 16:34
--- NOTE | 2017-11-05 18:44 | Pulmonology Progress Note ---
Assessment/Plan Problems: (1) Renal failure (2) Acute on chronic diastolic (congestive) heart failure (3) Congestive heart failure (4) Pneumonia (5) DVT (deep venous thrombosis) (6) Hypertensive heart disease Assessment/Plan renal funtion improving on Eliquis. adjusted dose I would continue Tamiflu for now med/surg clonidine for prn bp > 160 dc home with oral abx need close f/u Subjective ROS Limited/Unobtainable: No Constitutional: Reports: no symptoms HEENT: Repors: no symptoms Respiratory: Reports: no symptoms Allergies: Coded Allergies: PENICILLINS (Verified Allergy, Unknown, 10/31/17) Objective Last 24 Hour Vital Signs Date Time Temp Pulse Resp B/P (MAP) Pulse Ox O2 Delivery O2 Flow Rate FiO2 11/05/17 16:00 97.4 67 18 155/77 99 11/05/17 13:50 149/71 11/05/17 13:46 149/71 11/05/17 13:24 70 18 98 Room Air 21 11/05/17 13:14 66 16 98 Room Air 21 11/05/17 12:01 97.4 65 19 149/71 96 11/05/17 09:01 169/74 11/05/17 08:55 71 169/74 11/05/17 08:55 71 169/74 11/05/17 08:53 169/74 11/05/17 08:00 97.6 71 20 169/74 99 11/05/17 07:00 77 18 99 Room Air 21 11/05/17 06:50 75 18 97 Room Air 21 11/05/17 05:09 189/81 11/05/17 05:09 189/81 11/05/17 04:00 97.4 71 25 189/89 96 11/05/17 01:52 181/93 11/05/17 00:32 Room Air 11/05/17 00:31 Room Air 21 11/05/17 00:00 97.3 74 26 181/93 94 11/04/17 20:50 179/83 11/04/17 20:50 72 179/83 11/04/17 20:00 97.9 72 21 179/83 95 11/04/17 19:48 69 20 98 Room Air 21 11/04/17 19:44 69 18 97 Room Air 21 1/10/18 19:44 Room Air 11/04/17 19:44 97 Room Air 21 Intake and Output 11/04/17 11/05/17 19:00 07:00 Intake Total 850 ml 240 ml Balance 850 ml 240 ml Intake Oral 850 ml 240 ml # Voids 3 2 General Appearance: WD/WN HEENT: normocephalic Respiratory/Chest: chest wall non-tender, lungs clear Cardiovascular: normal peripheral pulses, normal rate Abdomen: normal bowel sounds, soft, non tender Genitourinary: normal external genitalia Extremities: no cyanosis Skin: no lesions 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
--- NOTE | 2017-11-06 02:25 | General Progress Note ---
Assessment/Plan Status: stable Assessment/Plan # Bilateral LE DVT on Eliquis 5 bid. VQ scan Low probability for PE. IVC filter cancelled for renal failure --> agree with cancelling ivc filter especially given current h/h stable and better to avoid device unless absolutely indicated --> eliqis dose increased to 5mg po bid --> Cont to monitor. # Anemia of chronic disease - w/u completed and reviewed. --> hgb goal >7 --> Blood transfusion not required today. # Coagulopathy and rectal bleeding --> due to heparin gtt, has been discontinued --> h/h stable # Shortness of breath due to volume overload due to renal failure and chf, nml ef 55% --> cardiology following # Accelerated hypertension, on bb, hydralazine, clonidine rn # Renal failure Subjective Date patient seen: Nov 05, 2017 Constitutional: Denies: no symptoms, chills, diaphoresis, fever, malaise, weakness, other HEENT: Denies: no symptoms, eye pain, blurred vision, tearing, double vision, ear pain, ear discharge, nose pain, nose congestion, throat pain, throat swelling, mouth pain, mouth swelling, other Cardiovascular: Denies: no symptoms, chest pain, edema, irregular heart rate, lightheadedness, palpitations, syncope, other Respiratory: Denies: no symptoms, cough, orthopnea, shortness of breath, SOB with excertion, SOB at rest, sputum, stridor, wheezing, other Gastrointestinal/Abdominal: Denies: no symptoms, abdomen distended, abdominal pain, black stools, tarry stools, blood in stool, constipated, diarrhea, difficulty swallowing, nausea, poor appetite, poor fluid intake, rectal bleeding , vomiting, other Genitourinary: Denies: no symptoms, burning, discharge, frequency, flank pain, hematuria, incontinence, pain, urgency, other Allergies: Coded Allergies: PENICILLINS (Verified Allergy, Unknown, 10/31/17) Subjective No major events. No fever or chills. H/H stable. Pending discharge. Objective Last 24 Hour Vital Signs Date Time Temp Pulse Resp B/P (MAP) Pulse Ox O2 Delivery O2 Flow Rate FiO2 11/05/17 16:00 97.4 67 18 155/77 99 11/05/17 13:50 149/71 11/05/17 13:46 149/71 11/05/17 13:24 70 18 98 Room Air 21 11/05/17 13:14 66 16 98 Room Air 21 11/05/17 12:01 97.4 65 19 149/71 96 11/05/17 09:01 169/74 11/05/17 08:55 71 169/74 11/05/17 08:55 71 169/74 11/05/17 08:53 169/74 11/05/17 08:00 97.6 71 20 169/74 99 11/05/17 07:00 77 18 99 Room Air 21 11/05/17 06:50 75 18 97 Room Air 21 11/05/17 05:09 189/81 11/05/17 05:09 189/81 11/05/17 04:00 97.4 71 25 189/89 96 Laboratory Tests 11/05/17 08:45: Sodium Level 141, Potassium Level 4.3, Chloride Level 105, Carbon Dioxide Level 28, Anion Gap 8, Blood Urea Nitrogen 52H, Creatinine 2.4H, Estimat Glomerular Filtration Rate , Glucose Level 136H, Calcium Level 8.7, Total Bilirubin 0.5, Aspartate Amino Transf (AST/SGOT) 45H, Alanine Aminotransferase (ALT/SGPT) 32, Alkaline Phosphatase 62, Total Protein 6.8, Albumin 2.8L, Globulin 4.0, Albumin/ Globulin Ratio 0.7L Height (Feet): 5 Height (Inches): 3.00 Weight (Pounds): 173 General Appearance: no apparent distress Cardiovascular: normal rate, regular rhythm Abdomen: non tender Art Lees Nov 06, 2017 02:25
--- NOTE | 2017-11-06 06:09 | Discharge Summary ---
Discharge Summary Hospital Course Date of Admission Oct 31, 2017 at 16:16 Date of Discharge Nov 05, 2017 at 16:32 Admitting Diagnosis Pneumonia, CHF, Hypertensive urgency Reason for Hospitalization: CHF, Pneumonia HPI 77y/o female with pmh of HTN who presents with SOB and abd pain. Pt w/ worsening SOB for the past week. Has [place] w/ minimal activities. Also with orthopnea, PND, BLE swelling. Has a cough productive of white mucus. Had subjective fevers, no chills. Did not get flu shot this year. Denies chest pain. C/o abd pain that starts at LLQ and radiates up, described as burning sensation, intermittent, not associated w/ eating, worse w/ sitting up. Some nausea, no emesis. Tolerating PO intake. Denies d/c, dysuria, melena, BRBPR. Denies recent travel. Denies smoking. Lives at home w/ daughter and grandchildren. In ED, pt noted to be hypertensive w/ SBP 200s. She was also noted to be in fluid overload and with MOLLY. She was given nebs, lasix IV, nitro paste, cefepime. Consultations Nephrology, Pulmonology, Cardiology, Hematology/oncology Hospital Course Pt was admitted to tele and diuresed w/ lasix IV w/ good response. She was started on empiric anbitioics given concern for pneumonia. Troponin peaked at 0.063. Pt was seen by cardiology and medications optimized. TTE showed EF wnl, diastolic dysfunction, and LVH. Pt stated on multiple BP meds to assist with BP control. She was also found to have acute b/l DVT and heme/onc recommended treatment with Eliquis. V/Q scan low probability for PE. SCr improved w/ diuresis. Pt improved significantly. Prior to d/c, she was HD stable, tolerating PO and ambulating w/o assistance. Discharge physical exam: General: alert, cooperative, no distress, appears stated age Head: normocephalic, without obvious abnormality, atraumatic Eyes: conjunctivae/corneas clear. PERRL, EOM's intact Throat: lips, mucosa, and tongue normal. MMM Neck: supple, symmetrical, trachea midline, and no JVD Lungs: clear to auscultation bilaterally Heart: regular rate and rhythm, S1, S2 normal, no murmur, click, rub or gallop Abdomen: soft, non-tender, non-distended, bowel sounds normal Extremities: extremities normal, atraumatic, no cyanosis, trace BLE edema Pulses: 2+ and symmetric Skin: skin color, texture, turgor normal; no rashes or lesions Neurologic: grossly normal, no focal deficits Discharge diagnoses: 1) Acute on chronic diastolic (congestive) heart failure ICD Codes: I50.33 - Acute on chronic diastolic (congestive) heart failure SNOMED: 54156790, 120083902 (2) Hypertensive urgency ICD Codes: I16.0 - Hypertensive urgency SNOMED: 358342840 (3) MOLLY on CKD (4) Sepsis ICD Codes: A41.9 - Sepsis, unspecified organism SNOMED: 18551314 (5) CAP (community acquired pneumonia) Assessment & Plan: Left lower lobe consolidation on CT ICD Codes: J18.9 - Pneumonia, unspecified organism SNOMED: 128331814 (6) Hypertensive heart disease ICD Codes: I11.9 - Hypertensive heart disease without heart failure SNOMED: 07025826 (7) Cardiorenal syndrome ICD Codes: I13.10 - Hypertensive heart and chronic kidney disease without heart failure, with stage 1 through stage 4 chronic kidney disease, or unspecified chronic kidney disease SNOMED: 020662842 (8) NSTEMI (non-ST elevated myocardial infarction) ICD Codes: I21.4 - Non-ST elevation (NSTEMI) myocardial infarction SNOMED: 417765918 (9) Abdominal pain Assessment & Plan: possibly 2/2 underlying left lower lobe pneumonia ICD Codes: R10.9 - Unspecified abdominal pain SNOMED: 53365153 (10) Acute bilateral deep vein thrombosis (DVT) of femoral veins ICD Codes: I82.413 - Acute embolism and thrombosis of femoral vein, bilateral SNOMED: 116981906820538 Discharge Medications New Medications: Furosemide* (Lasix*) 40 Mg Tablet 40 MG ORAL DAILY for 30 Days, #30 TAB 0 Refills Levofloxacin* (Levaquin*) 750 Mg Tablet 750 MG ORAL Q48H for 5 Days, #3 TAB Amlodipine Besylate (Norvasc) 10 Mg Tablet 10 MG ORAL DAILY for 30 Days, #30 TAB 3 Refills Apixaban (Eliquis) 2.5 Mg Tablet 5 MG ORAL BID for 30 Days, #30 TAB 3 Refills Carvedilol (Coreg) 25 Mg Tablet 25 MG ORAL EVERY 12 HOURS for 30 Days, #30 TAB 3 Refills Clonidine HCl (Clonidine HCl) 0.1 Mg Tablet 0.1 MG ORAL EVERY 8 HOURS for 30 Days, #90 TAB 1 Refill Guaifenesin* (Guaifenesin) 100 Mg/5 Ml Liquid 100 MG ORAL Q4H PRN for 30 Days, #200 ML 1 Refill Hydralazine HCl (Hydralazine HCl) 50 Mg Tablet 100 MG ORAL Q8HR for 30 Days, #90 TAB 1 Refill Pantoprazole* (Protonix*) 40 Mg Tablet.dr 40 MG ORAL DAILY for 30 Days, #30 TAB 2 Refills Potassium Chloride* (K-Dur*) 20 Meq Tab.er.prt 40 MEQ ORAL DAILY for 14 Days, #30 TAB 1 Refill Continued Medications: Isosorbide Mononitrate (Isosorbide Mononitrate Er) 60 Mg Tab.er.24h 60 MG PO DAILY for 30 Days, #30 TAB 3 Refills (This prescription has been renewed) Discontinued Medications: Losartan/Hydrochlorothiazide (Losartan-Hctz 100-25 Mg Tab) 1 Each Tablet 1 TAB ORAL DAILY, TAB Discharge Condition Upon Discharge: stable Discharge Disposition Patient was discharged to Home with Home Health(06) Discharge Diagnoses: Discharge Instructions Discharge Instructions Follow up with: Primary care doctor in 5-7 days for repeat labs and BP check Call MD/Return to Hospital if: fevers, chest pain, SOB Services Upon Discharge: home health services Activity: resume normal activities Jax Hines M.D. Nov 06, 2017 06:09
[2018-01-14] MEDS ORDERED: LOSARTAN-HCTZ1 EAC1 ORAL (13:47)
[2018-01-14] MEDS ORDERED: ELIQUIS5 M1 PO (13:47)
[2018-01-14] MEDS ORDERED: FERROUS SULFAT325 MG ORAL (13:47)
== END 2017-11-05 16:32 | disposition home health service (06) | DRG 280 ==
LOC: EMR 14:50 → 2E 16:16 → EDBEDREQ 17:13 → 2E 11-01 12:16 → 3E 11-03 23:17
DX: I13.0 Hypertensive heart and chronic kidney disease with heart failure and stage 1 through stage 4 chronic kidney disease, or unspecified chronic kidney disease (principal); I50.33 Acute on chronic diastolic (congestive) heart failure; I21.4 Non-ST elevation (NSTEMI) myocardial infarction; N17.9 Acute kidney failure, unspecified; J18.9 Pneumonia, unspecified organism; K62.5 Hemorrhage of anus and rectum; D68.9 Coagulation defect, unspecified; I82.413 Acute embolism and thrombosis of femoral vein, bilateral; D63.1 Anemia in chronic kidney disease; I16.0 Hypertensive urgency; N18.9 Chronic kidney disease, unspecified; R10.9 Unspecified abdominal pain; Z88.0 Allergy status to penicillin
CPT/HCPCS: 36415; 71045; 74176; 76775; 78579; 78580; 80048; 80053; 80061; 81003; 82550; 82570; 82728; 82746; 82962; 82977; 83036; 83540; 83550; 83605; 83615; 83690; 83735; 83880; 84100; 84238; 84300; 84439; 84443; 84484; 84550; 85007; 85025; 85060; 85384; 85610; 85730; 86140; 86171; 86710; 86850; 86900; 86901; 87040; 93005; 93306; 93970; 94640; 94664; 94760; 99285; A9503; J2405; J7620; J8499